=== PATIENT | male | born 1945 | race Caucasian/White ===

== ENCOUNTER 2016-12-06 11:48 | Day surgery (SDC) | payer MEDICARE, SELFPAY ==
[~2016-12-06 11:48] MED LIST: CEFAZOLIN 2 Gram 50 ML IVPB ONE
[2016-12-06] MEDS ORDERED: PROPOFOL 10 MG/ML VIAL IV ONE (14:33)
[2016-12-06] MEDS ORDERED: *PACU ONLY* KETAMINE HCL 10 MG/ML (20ML) VIAL IV ONE (14:33)
[2016-12-06] MEDS ORDERED: DIPHENHYDRAMINE HCL IV 50 MG/ML VIAL IVP ONE (15:28)
[2016-12-06] MEDS ORDERED: PHENAZOPYRIDINE HCL 95 MG TABLET PO ONE (15:28)
--- NOTE | 2016-12-07 12:42 | Operative Note ---
DATE OF PROCEDURE: 12/06/2016. PREOPERATIVE DIAGNOSIS: URGE INCONTINENCE AND RECURRENT URINARY TRACT INFECTIONS. POSTOPERATIVE DIAGNOSIS: URGE INCONTINENCE AND RECURRENT URINARY TRACT INFECTIONS. PROCEDURE: Cystoscopy, bilateral retrograde pyelograms. ANESTHESIA: Sedation. INDICATIONS: This is a 71-year-old male with a history of strokes as well as urinary retention in the past. He underwent transurethral resection of the prostate roughly 6 months ago at an outside institution. He has been having recurring episodes of urge incontinence and has had two urinary tract infections in the past month; the last one was proteus. A CT scan with stone protocol was obtained which was unremarkable and did not show any sign of urinary tract calculus or obstruction. Today he presents for cystoscopic evaluation. PROCEDURE: Preoperative informed consent was obtained. Antibiotics were given. Sedation was administered. The patient was brought to the operating room and placed in the lithotomy position with the genitalia prepped and draped sterilely. Cystoscopy was performed. The anterior urethra appears unremarkable. The prostate shows signs of prior transurethral resection as noted above. There is a left lateral lobe which is protruding somewhat intravesically causing some mild visual obstruction. Otherwise there is no evidence of bladder outlet obstruction. The bladder was entered and inspected systematically. Both ureteral orifices had normal appearance and positioning. Each was effluxing clear urine. There was a moderate amount of bladder trabeculation noted. There was no other evidence of bladder abnormality seen. No evidence of tumor, stone, or other abnormality. Bilateral retrograde pyelograms were performed. Recognizing the fine-detail limitations of mobile seen on fluoroscopy, the upper tracts appeared unremarkable with no evidence of filling defect, stricture, or dilatation. Drainage was prompt bilaterally. The bladder was then emptied, and the scope was withdrawn. Rectal examination revealed a mild to moderately enlarged prostate which was smooth without any nodularity. The procedure was then terminated. The patient was transferred to Recovery in stable condition. PLAN: My overall impression regarding urge incontinence is that this is very likely related to bladder dysfunction possibly related to his history of strokes since there is no evidence of bladder outlet obstruction today. We discussed management options with his family, and decided to start him on VESIcare 10 mg tablets. I wrote a prescription for that. He will follow up in the office in one month to review his response. With regards to the recurrent urinary tract infections, again I have not identified a source. This may be related to diabetes or other systemic illness. If he continues to show recurring infections or positive urine cultures, we will discuss putting him on a prophylactic antibiotic program. Chandler Jain M.D. Date Time Job Number: [id number] cc: Lee Chauhan
== END 2016-12-06 15:25 | disposition home or self-care (01) ==
LOC: SUR 11:48
PROVIDERS: ATTEND Urology
DX: N39.41 Urge incontinence (principal); N39.0 Urinary tract infection, site not specified; E11.9 Type 2 diabetes mellitus without complications; Z79.84 Long term (current) use of oral hypoglycemic drugs; I10 Essential (primary) hypertension; E78.00 Pure hypercholesterolemia, unspecified
CPT/HCPCS: 52005; 00910; J0690; J1200

== ENCOUNTER 2017-01-08 01:13 | Inpatient (IN) | payer MEDICARE, SELFPAY ==
[2017-01-08] MEDS ORDERED: 0.9 % SODIUM CHLORIDE 1,000 ML BAG IV ONE (01:38)
--- NOTE | 2017-01-08 01:44 | Emergency Department Record ---
History of Present Illness - General Chief complaint: Nausea, Vomiting, Diarrhea Stated complaint: VOMITING Time Seen by Provider: 01/08/17 01:38 Source: Patient, Family, EMS Mode of Arrival: EMS - History of Present Illness Initial comments: 71 yo male presents with nausea, vomiting and diarrhea that started around 7pm. Report is it occurred numerous times. He is a resident of an adult foster care. No other sick residents. He has a history of prior strokes. He has been weak generally throughout the day. No fevers. No cough. No blood in the diarrhea. He has been in the home since October. PCP is Dr Billy. complaint: Diarrhea, Nausea, Vomiting Onset/Timin -: Days(s) Description of Vomiting: Watery Description of Diarrhea: Water Radiation: None Quality: Other (resolved) Consistency: Intermittent Improves with: None Worsens with: Eating Associated Symptoms: Nausea/vomiting, Weakness - Related Data Home Medications Medication Instructions Recorded Confirmed Last Taken Amlodipine Besylate [Norvasc] 10 mg PO DAILY 01/08/17 01/08/17 Unknown Chlorthalidone 25 mg PO DAILY 01/08/17 01/08/17 Unknown Citalopram Hydrobromide 20 mg PO DAILY 01/08/17 01/08/17 Unknown [Citalopram HBr] Docusate Sodium [Colace] 100 mg PO BID 01/08/17 01/08/17 Unknown Glipizide [Glipizide ER] 5 mg PO DAILY 01/08/17 01/08/17 Unknown Lisinopril 10 mg PO DAILY 01/08/17 01/08/17 Unknown Metoprolol Succinate 50 mg PO DAILY 01/08/17 01/08/17 Unknown Omeprazole 20 mg PO BID 01/08/17 01/08/17 Unknown Solifenacin Succinate [Vesicare] 10 mg PO DAILY 01/08/17 01/08/17 Unknown Tamsulosin HCl [Flomax] 0.8 mg PO DAILY 01/08/17 01/08/17 Unknown Allergies Allergy/AdvReac Type Severity Reaction Status Date / Time Iodinated Contrast Media - Allergy "sets him Verified 05/02/16 23:20 Oral and on fire or [Iodinated Contrast Media - something." IV Dye] sertraline HCl [From Zoloft] Allergy PT UNSURE Verified 12/05/16 12:00 OF REACTION Travel Screening - Travel/Exposure Within Last 30 Days Have you traveled within the last 30 days?: No Review of Systems Constitutional: Reports: Malaise, Weakness. Denies: Chills, Fever Eyes: Denies: Eye discharge, Eye pain, Photophobia ENT: Denies: Congestion, Throat pain Respiratory: Denies: Cough, Dyspnea, Hemoptysis, Stridor, Wheezes Cardiovascular: Denies: Chest pain, Palpitations, Syncope Endocrine: Reports: Fatigue Gastrointestinal: Reports: Diarrhea, Nausea, Vomiting. Denies: Constipation, Hematemesis, Hematochezia Genitourinary: Denies: Dysuria, Frequency Musculoskeletal: Denies: Arthralgia, Back pain, Myalgia, Neck pain Skin: Denies: Bruising, Change in color Neurological: Denies: Headache Psychiatric: Denies: Anxiety Hematological/Lymphatic: Denies: Blood Clots, Easy bleeding, Easy bruising, Swollen glands Past Medical History - SOCIAL HISTORY Smoking Status: Former smoker Alcohol Use: None Drug Use: None - RESPIRATORY Hx Respiratory Disorders: Yes - CARDIOVASCULAR Hx Cardio Disorders: Yes Hx Hypertension: Yes (on meds good control now) Hx Coronary Stent: Yes - NEURO Hx Neuro Disorders: Yes Hx Brain Tumor: Yes (cysts removed binign) Hx CVA: Yes (8 since ) Hx Dementia: Yes (mild) Hx Dizziness: Yes Hx Headaches: Yes (complicated) Hx of Migraines: Yes (complicated) 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) Hx Speech Problem: Yes (slow to speak at times) Hx TIA: Yes (February 2016) Hx Weakness: Yes - GI Hx GI Disorders: Yes Comment:: colon adenoma - Hx Genitourinary Disorders: Yes Hx Bladder Problem: Yes Hx Prostate Problems: Yes (TURP) Hx UTI: Yes (frequently) - ENDOCRINE Hx Endocrine Disorders: Yes Hx Diabetes: Yes - MUSCULOSKELETAL Hx Musculoskeletal Disorders: Yes Hx Arthritis: Yes - PSYCH Hx Psych Problems: Yes Hx Depression: Yes - HEMATOLOGY/ONCOLOGY Hx Hematology/Oncology Disorders: No Family Medical History Any Significant Family History?: Yes Hx Heart Disease: Brother/Sister *Heart Comment: neice Physical Exam - General General Appearance: Alert, Cooperative, No acute distress, Other (appears alert , answers questions) Limitations: No limitations - Head Head exam: Normal inspection - Eye Eye exam: Normal appearance, PERRL - ENT ENT exam: Normal exam, Mucous membranes moist Ear exam: Normal external inspection Nasal Exam: Normal inspection Mouth exam: Normal external inspection Teeth exam: Normal inspection Throat exam: Normal inspection - Neck Neck exam: Normal inspection, Full ROM. negative: Tenderness - Respiratory Respiratory exam: Normal lung sounds bilaterally. negative: Respiratory distress - Cardiovascular Cardiovascular Exam: Regular rate, Normal rhythm, Normal heart sounds - GI/Abdominal GI/Abdominal exam: Soft, Normal bowel sounds. negative: Diminished bowel sounds , Distended, Rigid, Tenderness - Rectal Rectal exam: Deferred - exam: Deferred - Extremities Extremities exam: Normal inspection, Full ROM, Normal capillary refill. negative: Tenderness - Back Back exam: Reports: Normal inspection, Full ROM. Denies: Muscle spasm, Rash noted, Tenderness - Neurological Neurological exam: Alert - Psychiatric Psychiatric exam: Normal affect, Normal mood - Skin Skin exam: Dry, Intact, Normal color, Warm Course Vital Signs 01/08/17 01:17 Temperature 99.7 F H Pulse Rate 80 Respiratory 18 Rate Blood Pressure 130/77 Pulse Ox 94 L - Reevaluation(s) Reevaluation #1: The CBC was reviewed No acute changes. 01/08/17 02:19 Reevaluation #2: The labs were reviewed His BUN was 40 with a CR of 1.7 likely demonstrating dehydration from the vomiting and diarrhea. Prior BUN/CR were in the normal range Glucose is 212, HCO3 is 20 with AG 16. 01/08/17 02:52 UA is negative 01/08/17 02:54 Reevaluation #3: The head CT scan was reviewed No acute changes from the prior CT scan. The patient will be admitted for dehydration, acute renal insufficiency, weakness at [facility] to his PCP Dr Billy. 01/08/17 03:32 Medical Decision Making - Lab Data Result diagrams: 01/08/17 02:00 01/08/17 02:00 Disposition Disposition: Admit Clinical Impression: Dehydration, Renal insufficiency, Vomiting and diarrhea, Confusion Disposition: Still a Patient at [facility] Decision to Admit: Admit from ER Decision to Admit Date: 01/08/17 Decision to Admit Time: 03:33 Condition: (2) Stable Forms: Patient Portal Access Time of Disposition: 03:33
[2017-01-08 02:16] LABS: BASO % 0.1 % (0-6); EOS % 0.2 % (0-6); HEMATOCRIT 37.4 % (42.0-52.0); HEMOGLOBIN 13.4 gm/dl (14.0-18.0); LYMPH % 2.3 % (16-45); MEAN CELL VOLUME 91.4 fl (81-97); MEAN CORPUSCULAR HGB CONC 35.8 g/dl (32-36); MEAN PLATELET VOLUME 10.5 fl (7.4-10.4); MONO % 5.1 % (0-9); PLATELET COUNT 183 K/uL (130-400); RED BLOOD COUNT 4.09 M/uL (4.40-5.70); RED CELL DISTRIBUTION WIDTH 13.3 % (11.5-14.5); WHITE BLOOD COUNT W/O DIFF 11.7 K/uL (4.2-12.2)
[2017-01-08 02:17] LABS: MEAN CORPUSCULAR HEMOGLOBIN 32.7 pg (27-33)
[2017-01-08 02:25] LABS: URINE APPEARANCE CLEAR; URINE BILIRUBIN NEGATIVE (NEGATIVE); URINE BLOOD MODERATE (NEGATIVE); URINE COLOR YELLOW; URINE GLUCOSE (UA) NEGATIVE (NEGATIVE); URINE KETONE NEGATIVE (NEGATIVE); URINE LEUKOCYTE ESTERASE NEGATIVE (NEGATIVE); URINE NITRITE NEGATIVE (NEGATIVE); URINE PROTEIN TRACE (NEGATIVE); URINE UROBILINOGEN 0.2 E.U./dL (0.20 - 1.00)
[2017-01-08 02:26] LABS: ALBUMIN 4.2 gm/dL (3.5-5.0); ANION GAP 16.1 (7-16); BILIRUBIN,TOTAL 0.62 mg/dL (0.2-1.3); CARBON DIOXIDE 20.9 mmol/L (22-30); CREATININE 1.7 mg/dL (0.66-1.25); TOTAL PROTEIN 7.2 gm/dL (6.3-8.2)
[2017-01-08 02:32] LABS: URINE BACTERIA NONE SEEN; URINE EPITHELIAL CELLS NONE SEEN (FEW); URINE WBC NONE SEEN (0-2/hpf)
[2017-01-08] MEDS ORDERED: ACETAMINOPHEN 500 MG TABLET PO PRN (07:30)
[2017-01-08] MEDS ORDERED: ONDANSETRON HCL IV 4 MG/2 ML VIAL IVP PRN (07:30)
--- NOTE | 2017-01-08 07:42 | History & Physical ---
History of Present Illness - Date of Service Date of Service for History & Physical: 01/08/17 - History of Present Illness Admitting Diagnosis: Renal Insuffiency, Dehydration, weakness, confusion History of Present Illness: Micky Harris is a 71 y/o male with hx several CVA, DM admitted with dehydration after sudden onset nausea, vomiting and diarrhea, acute mental status changes from baseline. Currently lives in an AFC and is able to communicate, baseline A&O x3, did admit to + sick contacts in the home with similar symptoms. PCP- Dr Billy PMX: CVA x 8, HTN, DM, colon adenoma PSX: brain cyst removal x 3 Travel Screening - Travel/Exposure Within Last 30 Days Have you traveled within the last 30 days?: No Review of Systems Constitutional: Reports: Malaise, Weakness. Denies: Chills, Fever Eyes: Denies: Eye discharge, Eye pain, Photophobia ENT: Denies: Congestion, Throat pain Respiratory: Denies: Cough, Dyspnea, Hemoptysis, Stridor, Wheezes Cardiovascular: Denies: Chest pain, Palpitations, Syncope Endocrine: Reports: Fatigue Gastrointestinal: Reports: Diarrhea, Nausea, Vomiting. Denies: Constipation, Hematemesis, Hematochezia Genitourinary: Denies: Dysuria, Frequency Musculoskeletal: Denies: Arthralgia, Back pain, Myalgia, Neck pain Skin: Denies: Bruising, Change in color Neurological: Denies: Headache Psychiatric: Denies: Anxiety Hematological/Lymphatic: Denies: Blood Clots, Easy bleeding, Easy bruising, Swollen glands Past Medical History - SOCIAL HISTORY Smoking Status: Former smoker Alcohol Use: None Drug Use: None - RESPIRATORY Hx Respiratory Disorders: Yes - CARDIOVASCULAR Hx Cardio Disorders: Yes Hx Hypertension: Yes (on meds good control now) Hx Coronary Stent: Yes - NEURO Hx Neuro Disorders: Yes Hx Brain Tumor: Yes (cysts removed binign) Hx CVA: Yes (8 since ) Hx Dementia: Yes (mild) Hx Dizziness: Yes Hx Headaches: Yes (complicated) Hx of Migraines: Yes (complicated) 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) Hx Speech Problem: Yes (slow to speak at times) Hx TIA: Yes (February 2016) Hx Weakness: Yes - GI Hx GI Disorders: Yes Comment:: colon adenoma - Hx Genitourinary Disorders: Yes Hx Bladder Problem: Yes Hx Prostate Problems: Yes (TURP) Hx UTI: Yes (frequently) - ENDOCRINE Hx Endocrine Disorders: Yes Hx Diabetes: Yes - MUSCULOSKELETAL Hx Musculoskeletal Disorders: Yes Hx Arthritis: Yes - PSYCH Hx Psych Problems: Yes Hx Depression: Yes - HEMATOLOGY/ONCOLOGY Hx Hematology/Oncology Disorders: No Family Medical History Any Significant Family History?: Yes Hx Heart Disease: Brother/Sister *Heart Comment: tori H&P Meds/Allergies - Allergies Allergies: Allergies Allergy/AdvReac Type Severity Reaction Status Date / Time Iodinated Contrast Media - Allergy "sets him Verified 05/02/16 23:20 Oral and on fire or [Iodinated Contrast Media - something." IV Dye] sertraline HCl [From Zoloft] Allergy PT UNSURE Verified 12/05/16 12:00 OF REACTION - Home Medications Home Medications Medication Instructions Recorded Confirmed Last Taken Amlodipine Besylate [Norvasc] 10 mg PO DAILY 01/08/17 01/08/17 Unknown Chlorthalidone 25 mg PO DAILY 01/08/17 01/08/17 Unknown Citalopram Hydrobromide 20 mg PO DAILY 01/08/17 01/08/17 Unknown [Citalopram HBr] Docusate Sodium [Colace] 100 mg PO BID 01/08/17 01/08/17 Unknown Glipizide [Glipizide] 5 mg PO DAILY 01/08/17 01/08/17 Unknown Lisinopril 10 mg PO DAILY 01/08/17 01/08/17 Unknown Metoprolol Succinate 50 mg PO DAILY 01/08/17 01/08/17 Unknown Omeprazole 20 mg PO BID 01/08/17 01/08/17 Unknown Solifenacin Succinate [Vesicare] 10 mg PO QHS 01/08/17 01/08/17 Unknown Tamsulosin HCl [Flomax] 0.4 mg PO BID 01/08/17 01/08/17 Unknown - Active Medications Active Medications: Current Medications Acetaminophen (Tylenol 500mg Tab) 500 mg PO Q6H PRN PRN Reason: PAIN/TEMP Glipizide (Glucotrol Xl) 5 mg PO DAILY [facility] Sodium Chloride () 1,000 mls @ 100 mls/hr IV .Q10H PRN PRN Reason: LARGE VOLUME IV Metoprolol Succinate (Toprol Xl) 50 mg PO DAILY [facility] Non-Formulary Medication (Amlodipine Besylate [Norvasc]) 10 mg PO DAILY [facility] Non-Formulary Medication (Atorvastatin Calcium [Lipitor]) 40 mg PO QD [facility] Non-Formulary Medication (Omeprazole [Omeprazole]) 20 mg PO BID [facility] Non-Formulary Medication (Solifenacin Succinate [Vesicare]) 10 mg PO DAILY [facility] Non-Formulary Medication (Topiramate [Topamax]) 50 mg PO BID [facility] Ondansetron HCl (Zofran) 4 mg IVP Q4H PRN PRN Reason: NAUSEA Tamsulosin HCl (Flomax) 0.8 mg PO DAILY [facility] Physical Exam - Vital Signs Vital Signs: Vital Signs - Last 24 Hrs Temp Pulse Resp BP Pulse Ox 01/08/17 07:25 98.1 F 68 18 133/56 94 L - General General Appearance: Alert, Cooperative, No acute distress, Other (appears alert , answers questions) Limitations: No limitations - Head Head exam: Normal inspection - Eye Eye exam: Normal appearance, PERRL - ENT ENT exam: Normal exam, Mucous membranes moist Ear exam: Normal external inspection Nasal Exam: Normal inspection Mouth exam: Normal external inspection Teeth exam: Normal inspection Throat exam: Normal inspection - Neck Neck exam: Normal inspection, Full ROM. negative: Tenderness - Respiratory Respiratory exam: Normal lung sounds bilaterally. negative: Respiratory distress - Cardiovascular Cardiovascular Exam: Regular rate, Normal rhythm, Normal heart sounds - GI/Abdominal GI/Abdominal exam: Soft, Normal bowel sounds. negative: Diminished bowel sounds , Distended, Rigid, Tenderness - Rectal Rectal exam: Deferred - exam: Deferred - Extremities Extremities exam: Normal inspection, Full ROM, Normal capillary refill. negative: Tenderness - Back Back exam: Reports: Normal inspection, Full ROM. Denies: Muscle spasm, Rash noted, Tenderness - Neurological Neurological exam: Alert - Psychiatric Psychiatric exam: Normal affect, Normal mood - Skin Skin exam: Dry, Intact, Normal color, Warm Results - Labs Result Diagrams: 01/08/17 02:00 01/08/17 02:00 - Imaging and Cardiology CT scan - head Status: Report reviewed (1- previous craniotomies, 2- no evidence of acute intracranial abnormality) VTE H&P Assessment - Risk for VTE Risk for VTE: Yes Risk Level: Low Risk Assessment Date: 01/08/17 Risk Assessment Time: 07:40 VTE Orders Placed or Will Be Placed: Yes Plan - Inpatient Certification Inpatient Certification: Admit to inpatient care: Based on my medical assessment, after consideration of patient's risk factors (age, co-morbidities and patient presenting symptoms and acuity), I expect that this patient will remain in the hospital greater than or equal to two midnights and that the services needed warrant inpatient care because: Patient Risk Factors: [mental status changes, advance age, multiple comorbidities, unable to perform ADLs] Estimated length of stay: [48-72 hours] The patient may reasonably be expected to be discharged or transferred to a hospital within 96 hours after admission to [facility]. Services needed: [IV fluids, assist with ADL] Post hospital care (if known): [] I certify that my determination is in accordance with my understanding of Medicare requirements for reasonable and necessary inpatient services. 01/08/17 07:42 - Detailed Diagnosis and Plan (1) Dehydration Current Visit: Yes Status: Acute Base Code: E86.0 - DEHYDRATION Comment: 01/08- Likely etiology gastroenteritis with vomiting and diarrhea, BUN/ Cr 40/1.7 in the absence of previous renal disease with slight elevation in WBC prior to IVF in ER which returned WBC to normal limit. Continue IVF @ 100ml/hr, CMP in am (2) Renal insufficiency Current Visit: Yes Status: Acute Base Code: N28.9 - DISORDER OF KIDNEY AND URETER, UNSPECIFIED Comment: 01/08- Likely etiology prerenal azotemia with BUN/CR ratio>20, no previous hx renal disease with acute GI loss from vomiting and diarrhea. CMP in am, continue IVF @ 100ml/hr for replacement (3) Mental status change Current Visit: Yes Status: Acute Qualifiers: Altered mental status type: unspecified Qualified Code(s): R41.82 - Altered mental status, unspecified Base Code: R41.82 - ALTERED MENTAL STATUS , UNSPECIFIED Comment: 01/08- acute change from baseline with hx recurrent CVA likely due to acute dehydration, acute infections process ruled out (U/A neg, WBC elevated upon arrival to ER likely as caused by dehydration). (4) Diabetes type 2, controlled Current Visit: Yes Status: Chronic Qualifiers: Diabetes mellitus complication status: with unspecified complications Diabetes mellitus half-way insulin use: without half-way use Qualified Code(s): E11.8 - Type 2 diabetes mellitus with unspecified complications Base Code: E11.9 - TYPE 2 DIABETES MELLITUS WITHOUT COMPLICATIONS Comment: 01/08- Chronic, continue Glucotrol XL QD (5) HTN (hypertension) Current Visit: Yes Status: Chronic Qualifiers: Hypertension type: essential hypertension Qualified Code(s): I10 - Essential (primary) hypertension Base Code: I10 - ESSENTIAL (PRIMARY) HYPERTENSION Comment: 01/08- chronic history, controlled, will continue Amlodipine 10mg QD, will hold Chlorthaladone until dehyration is resolved, continue to monitor blood pressures per nursing . (6) DVT prophylaxis Current Visit: Yes Status: Acute Base Code: [id number] - Comment: 01/08- Eror- will DC Lovenox and use SCD 2nd hx hemorrhagic CVA
[2017-01-08] MEDS: 0.9 % SODIUM CHLORIDE 1000ML 1,000 ML IV PRN ×2 (07:53→17:32)
[2017-01-08] MEDS ORDERED: SOLIFENACIN SUCCINATE 10 MG PO SCH (10:00)
[2017-01-08] MEDS ORDERED: ENOXAPARIN 40 MG/0.4 ML SYR SQ SCH (10:00)
[2017-01-08] MEDS: DOCUSATE SODIUM 100 MG CAPSULE PO SCH ×2 (10:35→21:46)
[2017-01-08] MEDS: CITALOPRAM 20 MG TABLET PO SCH (10:35)
[2017-01-08] MEDS: TOPIRAMATE 25MG TABLET PO SCH ×2 (10:36→21:46)
[2017-01-08] MEDS: GLIPIZIDE 5 MG TABLET PO SCH (10:37)
[2017-01-08] MEDS: TAMSULOSIN HCL 0.4 MG CAP.ER.24H PO SCH ×2 (10:37→21:46)
[2017-01-08] MEDS: AMLODIPINE BESYLATE 5MG TAB PO SCH (10:38)
[2017-01-08] MEDS: METOPROLOL SUCC 50 MG TABLET PO SCH (10:38)
[2017-01-08] MEDS: PANTOPRAZOLE SODIUM 40 MG TABLET PO SCH ×2 (10:38→21:46)
[2017-01-08] MEDS: LISINOPRIL 10 MG TABLET PO SCH (10:38)
[2017-01-08] MEDS ORDERED: ATORVASTATIN 20 MG TABLET PO SCH (22:00)
[2017-01-09] MEDS: 0.9 % SODIUM CHLORIDE 1000ML 1,000 ML IV PRN (03:31)
[2017-01-09] MEDS: PANTOPRAZOLE SODIUM 40 MG TABLET PO SCH ×2 (05:57→06:49)
[2017-01-09 06:32] LABS: ALB/GLOB RATIO 1.2 (1.1-1.8); ALBUMIN 3.3 gm/dL (3.5-5.0); ALKALINE PHOSPHATASE 68 U/L (38-126); ALT/SGPT 29 U/L (21-72); AST/SGOT 19 U/L (17-59); BILIRUBIN,TOTAL 0.56 mg/dL (0.2-1.3); BLOOD UREA NITROGEN 22 mg/dL (9-20); CREATININE 1.2 mg/dL (0.66-1.25); EST GLOMERULAR FILTRATION RATE > 60 ml/min; GLUCOSE,RANDOM 109 mg/dL (70-110)
[2017-01-09] MEDS: GLIPIZIDE 5 MG TABLET PO SCH (08:29)
--- NOTE | 2017-01-09 09:52 | Rehab Evaluation ---
Patient Information - Patient Information Diagnosis: renal insuffiency, confusion, dehydration, weakness Ordered Treatment: PT Evaluate and Treat Status: Initial Evaluation Surgery: No History: Detail (Patient was admitted to inpatient with dx of renal insufficiency, confusion, dehydration, and weakness. Past medical hx of CVAsx8, HTN, DM (controlled), and colon adenoma. Pt also mentioned hx of R TKA and R shoulder injury.) Past Medical/Surgical Hx: PAST MEDICAL/SURGICAL HISTORY Past Surgical History cardiac stents x 2 2006 2007 knee replacement brain cyst removed x's 3 c scope PMH - Respiratory Hx Respiratory Disorders Yes Hx of SOB Yes: with exertion PMH - Cardiovascular Hx Cardiovascular Disorders Yes Hx Hypertension Yes: on meds good control now Hx Coronary Stent Yes Hx Transient Ischemic Attacks Yes: February 2016 (TIA) Residual Deficits from CVA Yes: tremors rt hand Hx of Migraines Yes: complicated PMH - Neuro Hx Neurological Disorders Yes Hx Brain Tumor Yes: cysts removed binign Hx Cerebrovascular Accident Yes: 8 since Hx Dementia Yes: mild Hx Dizziness Yes Hx Headaches Yes: complicated 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 activity for 20 years Hx Speech Problem Yes: slow to speak at times Hx Transient Ischemic Attacks Yes: February 2016 (TIA) Hx Weakness Yes PMH - GI Hx Gastrointestinal Disorders Yes Hx Gastroesophageal Reflux Yes Hx Nausea/Vomiting Yes Comment: colon adenoma PMH - Hx Genitourinary Disorders Yes Hx Bladder Problem Yes Hx Prostate Problems Yes: TURP Hx Urinary Tract Infection Yes: frequently PMH - Endocrine Hx Endocrine Disorders Yes Hx Diabetes Yes PMH - Musculoskeletal Hx Musculoskeletal Disorders Yes Hx Arthritis Yes PMH - Psych Hx Psychiatric Problems Yes Hx Depression Yes PMH - Hematology/Oncology Hx Hematology/Oncology No Disorders Premorbid Status: Detail (Patient lives at an [facility] and is independent with ADLs, per patient report. Pt ambulates with a single point cane and has a walker available as needed. Reported zero falls in the past year; "as far as he can remember.") Social History: Detail (Patient lives in an [facility] where meals are provided. Mentioned he has a daughter who works in [employer] and son who works in [employer]. Facility has a shower/tub combination, grab bars in shower, and raised toilet seat, per patient report. Pt also stated facility can provide assistance or therapy as needed.) Precautions: Alvin, Fall - Time With Patient Total Time Spent With Patient (Min): 35 Treatment Procedures: Detail Subjective Information - Subjective Information Per Patient Objective Data - Pain Pain Present: No - Mental Status Patient Orientation: Oriented x3 (Patient was able to recall his name, , month/day, and city ([place]). Pt had difficulty with finding words ( likely due to hx of CVAs), but was able to recall information when given time or prompting.) - Visual Perception Appears within normal limits for therapeutic activities - ROM Within normal limits (Pt is able to elevate arms above head suggesting ROM is WFL. LE ROM considered WFL for transfers and gait. No apparent ROM impairment.) - Strength/Tone Within normal limits (UE: head of talent management strength B 4+/5 and B elbow flexion strength 4+/ 5. LE: B hip flexion, knee extension/flexion, ankle DF/PF 4+/5. Delayed recruitment of ankle dorsiflexors, but strength WNL. Tremor noted with MMT of L>R muscle groups (UE and LE).) - Coordination Appears within normal limits for therapeutic activities - Bed Mobility Independent (Per nursing report) - Transfers Independent (Demonstrated independence with sit <> stand.) - Balance Balance Sitting: Good (Does not require use of UE for support when sitting edge of chair.) Balance Standing: Good (After gait training, patient standing balance assessed with single point cane with SBAx2 to evaluate appropriateness of device. Able to balance with eyes open using for 30 seconds without LOB. Self-selected wide MARGE noted. Able to stand with wide MARGE with eyes closed for 15 seconds without LOB as well as stand with narrow MARGE with eyes open for 15 seconds. Also demonstrated appropriate balance strategies with perturbations eyes open. Increased posterior sway with perturbations in A-P direction with eyes closed, but utilized appropriate hip strategy to correct balance.) - Gait Detail (Pt ambulated with FWW with CGAx1 70' without rest. Gait analysis revealed reciprocal gait pattern, shortened (equal) stride length and appropriate upright trunk position. Pt ambulated 10' with single point cane with CGAx1 and also demonstrated appropriate technique.) - Special Tests No Therapy Assessment - Therapy Assessment Detail (Patient is considered a low complexity evaluation based on body structure impairments and comorbidities including general weakness secondary to renal insufficiency and dehydration and confusion. Other personal factors are not relevant to PT POC. Due to the following impairments, the patient has slightly reduced tolerance to activity. Pt is able to ambulate with cane for short distances, but may benefit from PT evaluation upon return to [facility] to ensure safe transition s/p hospitalization and to promote achievement of maximum functional potential.) Problem List - Problem List Physical Therapy Problem List: Detail (1) Reduced tolerance to activity, namely ambulation community distances using single point cane) Goals - Goals Physical Therapy Goals: 1) Patient will ambulate 100' with single point cane with SBAx1 without LOB to ensure safe ambulation with prolonged activity and to achieve previous functional status. 2) Complete formal balance outcome measure to reassess fall risk. Prognosis - Prognosis Good Plan - Plan Physical Therapy Plan: Plan is to discharge patient to [facility] per attending physician. PT recommends an initial PT evaluation upon return to [facility] to ensure safe transition and to achieve maximum functional potential. May benefit from outcome measure related to balance to formally assess fall risk.
[2017-01-09] MEDS: DOCUSATE SODIUM 100 MG CAPSULE PO SCH (09:53)
[2017-01-09] MEDS: TAMSULOSIN HCL 0.4 MG CAP.ER.24H PO SCH (09:54)
[2017-01-09] MEDS: TOPIRAMATE 25MG TABLET PO SCH (09:54)
[2017-01-09] MEDS: CITALOPRAM 20 MG TABLET PO SCH (09:54)
[2017-01-09] MEDS: AMLODIPINE BESYLATE 5MG TAB PO SCH (09:55)
[2017-01-09] MEDS: LISINOPRIL 10 MG TABLET PO SCH (09:55)
[2017-01-09] MEDS: METOPROLOL SUCC 50 MG TABLET PO SCH (09:56)
--- NOTE | 2017-01-09 14:13 | Discharge Summary ---
Providers Discharge Summary Date: 01/09/17 Date of admission: 01/08/17 07:22 Expected Date of Discharge: 01/09/17 Attending physician: CYNDI DOMINIQUE Physical Exam - Vital Signs Vital Signs: Vital Signs - Last 24 Hrs Temp Pulse Resp BP BP BP Pulse Ox 01/09/17 09:52 98.7 F 50 L 16 114/56 96 01/09/17 09:00 98.7 F 50 L 16 120/62 01/09/17 05:52 98.7 F 54 L 18 120/62 98 01/08/17 21:00 98.9 F 60 18 108/63 97 01/08/17 15:30 97.7 F 56 L 16 98/52 95 - General General Appearance: Alert, Cooperative, No acute distress, Other (appears alert , answers questions) Limitations: No limitations - Head Head exam: Normal inspection - Eye Eye exam: Normal appearance, PERRL - ENT ENT exam: Normal exam, Mucous membranes moist Ear exam: Normal external inspection Nasal Exam: Normal inspection Mouth exam: Normal external inspection Teeth exam: Normal inspection Throat exam: Normal inspection - Neck Neck exam: Normal inspection, Full ROM. negative: Tenderness - Respiratory Respiratory exam: Normal lung sounds bilaterally. negative: Respiratory distress - Cardiovascular Cardiovascular Exam: Regular rate, Normal rhythm, Normal heart sounds - GI/Abdominal GI/Abdominal exam: Soft, Normal bowel sounds. negative: Diminished bowel sounds , Distended, Rigid, Tenderness - Rectal Rectal exam: Deferred - exam: Deferred - Extremities Extremities exam: Normal inspection, Full ROM, Normal capillary refill. negative: Tenderness - Back Back exam: Reports: Normal inspection, Full ROM. Denies: Muscle spasm, Rash noted, Tenderness - Neurological Neurological exam: Alert - Psychiatric Psychiatric exam: Normal affect, Normal mood - Skin Skin exam: Dry, Intact, Normal color, Warm Hospitalization - Hospitalization Admission Diagnosis: Renal Insuffiency, Dehydration, weakness, confusion - Problem List/Discharge Diagnosis (1) Dehydration Current Visit: Yes Status: Resolved Base Code: E86.0 - DEHYDRATION Comment: 01/09- Likely etiology gastroenteritis with vomiting and diarrhea, continued IV fluids until able to control nausea and then tolerate PO. GFR >60 and creatinine down to 1.2. No longer prerenal in labs. (2) Mental status change Current Visit: Yes Status: Resolved Discharge Diagnosis: Altered mental status type: unspecified Qualified Code(s): R41.82 - Altered mental status, unspecified Base Code: R41.82 - ALTERED MENTAL STATUS , UNSPECIFIED Comment: 01/09- with hydration status improved and nausea, vomitting, and diarrhea resolved. acute change from baseline with hx recurrent CVA likely due to acute dehydration, acute infections process ruled out (U/A neg) (3) Renal insufficiency Current Visit: Yes Status: Acute Base Code: N28.9 - DISORDER OF KIDNEY AND URETER, UNSPECIFIED Comment: 01/09- resolved with IV fluids. Likely etiology prerenal (dehydration) with BUN/CR ratio>20, no previous hx renal disease with acute GI loss from vomiting and diarrhea. (4) Vomiting and diarrhea Current Visit: Yes Status: Resolved Base Code: R11.10 - VOMITING, UNSPECIFIED; R19.7 - DIARRHEA, UNSPECIFIED (5) Diabetes type 2, controlled Current Visit: Yes Status: Chronic Discharge Diagnosis: Diabetes mellitus complication status: with unspecified complications Diabetes mellitus laborer marine terminal insulin use: without penitentiary use Qualified Code(s): E11.8 - Type 2 diabetes mellitus with unspecified complications Base Code: E11.9 - TYPE 2 DIABETES MELLITUS WITHOUT COMPLICATIONS Comment: 01/09- Chronic, continue Glucotrol XL QD (6) HTN (hypertension) Current Visit: Yes Status: Chronic Discharge Diagnosis: Hypertension type: essential hypertension Qualified Code(s): I10 - Essential (primary) hypertension Base Code: I10 - ESSENTIAL (PRIMARY) HYPERTENSION Comment: 01/09- Chronic history, controlled, will continue Amlodipine 10mg QD. Will hold Chlorthaladone until dehyration is resolved, continue to monitor blood pressures per nursing and have him follow up with PCP to determine need to restart chlorthaladone. - Hospitalization Course Abnormal Labs: Abnormal Lab Results 01/09/17 Range/Units 06:15 Carbon Dioxide 21.0 L (22-30) mmol/L BUN 22 H (9-20) mg/dL Calcium 8.2 L (8.5-10.1) mg/dL Total Protein 6.0 L (6.3-8.2) gm/dL Albumin 3.3 L (3.5-5.0) gm/dL Condition at Discharge: (1) Good Discharge Medications - Discharge Medications Home Medications: Ambulatory Orders Amlodipine Besylate [Norvasc] 10 mg PO DAILY 01/08/17 [Last Taken Unknown] Citalopram Hydrobromide [Citalopram HBr] 20 mg PO DAILY 01/08/17 [Last Taken Unknown] Docusate Sodium [Colace] 100 mg PO BID 01/08/17 [Last Taken Unknown] Glipizide 5 mg PO DAILY 01/08/17 [Last Taken Unknown] Lisinopril 10 mg PO DAILY 01/08/17 [Last Taken Unknown] Metoprolol Succinate 50 mg PO DAILY 01/08/17 [Last Taken Unknown] Omeprazole 20 mg PO BID 01/08/17 [Last Taken Unknown] Solifenacin Succinate [Vesicare] 10 mg PO QHS 01/08/17 [Last Taken Unknown] Tamsulosin HCl [Flomax] 0.4 mg PO BID 01/08/17 [Last Taken Unknown] Acetaminophen [Tylenol 500Mg Tab] 500 mg PO Q6H PRN #0 tablet 01/09/17 [Last Taken Unknown] Citalopram Hydrobromide [Celexa] 20 mg PO DAILY tablet 01/09/17 [Last Taken Unknown] Docusate Sodium [Colace] 100 mg PO BID cap 01/09/17 [Last Taken Unknown] Glipizide [Glucotrol] 5 mg PO DAILYWM tablet 01/09/17 [Last Taken Unknown] Discharge Plan - Discharge Instructions Activity at Discharge: Increase Activity as Tolerated Diet at Discharge: Regular Diet
--- NOTE | 2017-01-11 14:34 | CT SCAN REPORT ---
EXAM: CT SCAN HEAD WO CONTRAST HISTORY: PATIENT CONFUSED, HISTORY OF MULTIPLE STROKES. TECHNIQUE: Axial CT scan of the head performed without IV contrast. Preliminary report provided by [facility]. COMPARISON: Head CT 10/17/16. FINDINGS: Patient again is seen to be postop fairly extensive craniotomy on the left involving the frontoparietal and temporal regions as before. Large intraparenchymal cystic area again noted in the left frontal lobe measuring about 5 cm x 4.4 cm in size, essentially unchanged from before as I measured on the prior study as well. Small focal area of hyperdensity just inferior to this cyst is also again seen and appears unchanged. Dilatation of the frontal horn of the left lateral ventricle as before. The large intraparenchymal cystic focus again causes mass effect on the anterior falx as before. No definite acute intracranial hemorrhage is seen. Generalized atrophy as before. No definite acute infarct evident. Mild membrane thickening in the right frontal sinus and a cyst or polyp in the floor of the right maxillary sinus. IMPRESSION: 1. LARGE CYSTIC MASS-LIKE AREA, LEFT FRONTAL LOBE, BEFORE WITH SOME LOCALIZED MASS EFFECT AND DISPLACEMENT OF THE ANTERIOR FALX TO THE RIGHT BEFORE. THIS ALSO EFFACES THE OVERLYING FRONTAL LOBE SULCI BEFORE. 2. SMALL HYPERDENSE FOCUS MORE ANTEROINFERIORLY IN THE LEFT FRONTAL LOBE BEFORE. 3. GENERALIZED ATROPHY BEFORE. 4. DILATATION OF THE FRONTAL HORN OF THE LEFT LATERAL VENTRICLE BEFORE. 5. CYST OR POLYP IN THE FLOOR OF THE RIGHT MAXILLARY ANTRUM AND SOME MILD MEMBRANE THICKENING IN THE RIGHT FRONTAL SINUS. 6. LARGE POSTOP CRANIOTOMY ON THE LEFT BEFORE. JOB NUMBER: [id number] [facility]
== END 2017-01-09 18:20 | disposition home or self-care (01) | DRG 641 ==
LOC: ER 01:13 → MEDSURG 07:22
PROVIDERS: ADMIT Family Medicine; ATTEND Family Medicine
DX: E86.0 Dehydration (principal); R41.82 Altered mental status, unspecified; N28.9 Disorder of kidney and ureter, unspecified; R11.10 Vomiting, unspecified; I10 Essential (primary) hypertension; E11.9 Type 2 diabetes mellitus without complications; Z79.84 Long term (current) use of oral hypoglycemic drugs
CPT/HCPCS: 70450; 80048; 80053; 80076; 81001; 83690; 85027; 89055; 96360; 96361; 97161; 99223; 99239; 99285; J7030

== ENCOUNTER 2018-06-26 06:32 | Day surgery (SDC) | payer MEDICARE, SELFPAY ==
[2018-06-26] MEDS ORDERED: ALFENTANIL HCL 500 MCG/1ML, 2ML AMP IV ONE (06:33)
[2018-06-26] MEDS ORDERED: CARBACHOL 1.5 ML VIAL OPTH ONE (06:33)
[2018-06-26] MEDS ORDERED: NEO/POLY B/DEXAMETH 5ML SUSP OPTH ONE (06:33)
[2018-06-26] MEDS ORDERED: PROPOFOL 10 MG/ML VIAL IV ONE (06:33)
[2018-06-26] MEDS ORDERED: LIDOCAINE 2% MDV (20MG/ML) 20ML VIAL IV ONE ×2 (06:33)
[2018-06-26] MEDS ORDERED: EPINEPHRINE 1 MG/ML AMPUL SQ ONE (06:33)
[2018-06-26] MEDS ORDERED: TETRACAINE HCL 0.5% 15 ML OPTH BTL OPTH ONE (06:33)
[2018-06-26] MEDS ORDERED: CIPROFLOXACIN HCL 0.0015 GM, PHENYLEPHRINE HCL 0.05 GM, KETOROLAC TROMETHAMINE 0.000625 GM MC ONE ×5 (10:45)
--- NOTE | 2018-06-26 22:14 | Operative Note ---
DATE OF PROCEDURE: 06/26/18. PREOPERATIVE DIAGNOSIS: Nuclear sclerotic cataract, right eye. POSTOPERATIVE DIAGNOSIS: Nuclear sclerotic cataract, right eye. OPERATION: Phacoemulsification of cataractous lens with implantation of intraocular lens. LENS IMPLANT USED: Hahn Model PCB00 + 24.0 diopters. COMPLICATIONS: None. PROCEDURE IN DETAIL: Following a retrobulbar and facial block, the patient was prepped and draped in the usual fashion for eye surgery. A lid speculum was placed in the right eye after which a 2.4 mm tunnel wound was placed at the temporal limbus and dissected into clear cornea. A paracentesis was placed at 2 o'clock hours to the left and right of the initial incision and the chamber deepened with Viscoelastic. The keratome was then used to enter the anterior chamber after which the continuous circular capsulorrhexis was accomplished without difficulty using a bent needle and a Utrata forceps. Hydrodissection and hydrodelineation of the lens was performed after which the nucleus of the lens was removed using the Phaco handpiece in the [id number] technique. The residual cortical material was irrigated and aspirated from the eye after which the bag and chamber were re-examined. The bag was re-inflated with Viscoelastic and the intraocular lens injected into the capsular bag where it centered well. The Viscoelastic was then copiously irrigated and aspirated from the eye after which the temporal tunnel wound and paracentesis were hydrated and the wounds were examined. They were noted to be watertight. The lid speculum was removed from the eye and the eye patched and shielded. The patient was transferred to the recovery room in satisfactory condition and given an appointment to be reexamined in the clinic later today or as directed by Dr. Pendleton. JOB NUMBER: [id number] [facility]
== END 2018-06-26 09:48 | disposition home or self-care (01) ==
LOC: SUR 06:32
PROVIDERS: ATTEND Ophthalmology
DX: H25.11 Age-related nuclear cataract, right eye (principal); I10 Essential (primary) hypertension; E78.00 Pure hypercholesterolemia, unspecified; E11.9 Type 2 diabetes mellitus without complications; I25.10 Atherosclerotic heart disease of native coronary artery without angina pectoris; I63.9 Cerebral infarction, unspecified
CPT/HCPCS: J0171

== ENCOUNTER 2018-07-10 06:10 | Day surgery (SDC) | payer MEDICARE, SELFPAY ==
[2018-07-10] MEDS ORDERED: PROPOFOL 10 MG/ML VIAL IV ONE (06:11)
[2018-07-10] MEDS ORDERED: LIDOCAINE 2% MDV (20MG/ML) 20ML VIAL IV ONE (06:11)
[2018-07-10] MEDS ORDERED: EPINEPHRINE 1 MG/ML AMPUL SQ ONE (06:11)
[2018-07-10] MEDS ORDERED: FENTANYL PF 100MCG/2ML VIAL IV ONE (06:11)
[2018-07-10] MEDS ORDERED: TETRACAINE HCL 0.5% 15 ML OPTH BTL OPTH ONE (06:11)
[2018-07-10] MEDS ORDERED: CIPROFLOXACIN HCL 0.0015 GM, PHENYLEPHRINE HCL 0.05 GM, KETOROLAC TROMETHAMINE 0.000625 GM MC ONE ×5 (13:00)
--- NOTE | 2018-07-12 13:39 | Operative Note ---
DATE OF PROCEDURE: 07/10/18. PREOPERATIVE DIAGNOSIS: Nuclear sclerotic cataract, left eye. POSTOPERATIVE DIAGNOSIS: Nuclear sclerotic cataract, left eye. OPERATION: Phacoemulsification of cataractous lens with implantation of intraocular lens. LENS IMPLANT USED: Hahn Model PCB00 + 24.5 diopters. COMPLICATIONS: None. PROCEDURE IN DETAIL: Following a retrobulbar and facial block, the patient was prepped and draped in the usual fashion for eye surgery. A lid speculum was placed in the left eye after which a 2.4 mm tunnel wound was placed at the temporal limbus and dissected into clear cornea. A paracentesis was placed at 2 o'clock hours to the left and right of the initial incision and the chamber deepened with Viscoelastic. The keratome was then used to enter the anterior chamber after which the continuous circular capsulorrhexis was accomplished without difficulty using a bent needle and a Utrata forceps. Hydrodissection and hydrodelineation of the lens was performed after which the nucleus of the lens was removed using the Phaco handpiece in the [id number] technique. The residual cortical material was irrigated and aspirated from the eye after which the bag and chamber were re-examined. The bag was re-inflated with Viscoelastic and the intraocular lens injected into the capsular bag where it centered well. The Viscoelastic was then copiously irrigated and aspirated from the eye after which the temporal tunnel wound and paracentesis were hydrated and the wounds were examined. They were noted to be watertight. The lid speculum was removed from the eye and the eye patched and shielded. The patient was transferred to the recovery room in satisfactory condition and given an appointment to be reexamined in the clinic later today or as directed by Dr. Pendleton. JOB NUMBER: [id number] [facility]
== END 2018-07-10 09:35 | disposition home or self-care (01) ==
LOC: SUR 06:10
PROVIDERS: ATTEND Ophthalmology
DX: H25.12 Age-related nuclear cataract, left eye (principal); I10 Essential (primary) hypertension; E78.00 Pure hypercholesterolemia, unspecified; Z79.899 Other long term (current) drug therapy; Z51.81 Encounter for therapeutic drug level monitoring; E11.9 Type 2 diabetes mellitus without complications; K21.9 Gastro-esophageal reflux disease without esophagitis; I25.10 Atherosclerotic heart disease of native coronary artery without angina pectoris; Z86.73 Personal history of transient ischemic attack (TIA), and cerebral infarction without residual deficits
CPT/HCPCS: 66984; 00142; 85025; 82306; 80053; 36416; 83036; 82948; 84443; 80061; J3010; J0171

== ENCOUNTER 2019-02-03 19:58 | Inpatient (IN) | payer MEDICARE, SELFPAY ==
--- NOTE | 2019-02-03 20:22 | Emergency Department Record ---
History of Present Illness - General Chief Complaint: Confusion Stated Complaint: CONFUSION,COUGH Time Seen by Provider: 02/03/19 20:06 Source: Patient, Family (Daughter) Mode of Arrival: Wheelchair Limitations: Altered mental status - History of Present Illness Initial Comments: 73 yo male presents to ED for evaluation of increasing weakness and confusion for the past several days. Daughter reports recent cough symptoms, believed he may have a sinus infection similar to other family members. Patient resides at an assisted living facility, called his daughter as he was more confused today. Daughter reports a history of brain cancer s/p tumor removal, also reports numerous "brain bleeds" in the past. Family denies fever symptoms, denies focal weakness. MD Complaint: Altered mental status, Confusion Onset/Timin -: Days(s) Severity: Moderate Consistency: Constant - [place] Coma Scale Eye Response: (4) Open spontaneously Motor Response: (6) Obeys commands Verbal Response: (4) Confused conversation [place] Total: 14 - Related Data Allergies Allergy/AdvReac Type Severity Reaction Status Date / Time Iodinated Contrast- Oral and Allergy Intermediate "sets him Unverified 09/12/18 10:54 IV Dye on fire or [Iodinated Contrast Media - something." IV Dye] sertraline HCl [From Zoloft] Allergy Intermediate PT UNSURE Unverified 09/12/18 10:54 OF REACTION Review of Systems ROS unobtainable: Due to mental status Past Medical History - SOCIAL HISTORY Smoking Status: Former smoker - RESPIRATORY Hx Respiratory Disorders: Yes - CARDIOVASCULAR Hx Cardio Disorders: Yes Hx Cardiac Cath: Yes Hx Hypertension: Yes (on meds good control now) Hx Coronary Stent: Yes - NEURO Hx Neuro Disorders: Yes Hx Brain Tumor: Yes (benign cysts removed) Hx CVA: Yes (8 since ) Hx Dementia: Yes (mild) Hx Headaches: No (no problem with this recently) Hx of Migraines: No (no problem recently) 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) Hx Speech Problem: Yes (slow to speak at times) Hx TIA: Yes (February 2016) Hx Weakness: Yes (generalized) - GI Hx GI Disorders: Yes Hx Reflux: Yes - Hx Genitourinary Disorders: Yes Hx Bladder Problem: Yes (incont-wears adult depends) Hx Prostate Problems: Yes (TURP) Hx UTI: Yes (none recently(past year)) - ENDOCRINE Hx Endocrine Disorders: Yes Hx Diabetes: Yes - MUSCULOSKELETAL Hx Musculoskeletal Disorders: Yes Hx Arthritis: Yes (rt shoulder & rt knee) - PSYCH Hx Psych Problems: Yes Hx Depression: Yes - HEMATOLOGY/ONCOLOGY Hx Hematology/Oncology Disorders: No Family Medical History Hx Diabetes: Children Hx Heart Disease: Children, Brother/Sister Physical Exam - General General Appearance: Cooperative, Moderate distress, Other (Appears fatigued, AOx 2 (believes it is currently 2014)) Limitations: Altered mental status - Head Head exam: Atraumatic, Normocephalic, Normal inspection Head exam detail: negative: Abrasion, Contusion, Bianchi's sign, General tenderness, Hematoma, Laceration - Eye Eye exam: Normal appearance. negative: Conjunctival injection, Periorbital swelling, Periorbital tenderness, Scleral icterus - ENT Ear exam: negative: Auricular hematoma, Auricular trauma Nasal Exam: negative: Active bleeding, Discharge, Dried blood, Foreign body Mouth exam: negative: Drooling, Laceration, Muffled voice, Tongue elevation - Neck Neck exam: Normal inspection. negative: Meningismus, Tenderness - Respiratory Respiratory exam: Normal lung sounds bilaterally. negative: Rales, Respiratory distress, Rhonchi, Stridor - Cardiovascular Cardiovascular Exam: Regular rate, Normal rhythm, Normal heart sounds - GI/Abdominal GI/Abdominal exam: Soft, Tenderness. negative: Rebound, Rigid - Rectal Rectal exam: Deferred - exam: Deferred - Extremities Extremities exam: Normal inspection. negative: Pedal edema, Tenderness - Back Back exam: Denies: CVA tenderness (R), CVA tenderness (L) - Neurological Neurological exam: Alert, Normal gait, Oriented X3, Other (No focal deficits on examination). negative: Motor sensory deficit - Psychiatric Psychiatric exam: Normal affect, Normal mood - Skin Skin exam: Normal color. negative: Abrasion Type of lesion: negative: abrasion Course - Reevaluation(s) Reevaluation #1: 02/03/19 20:21 EKG: NSR 65 IVCD, nonspecific ST-T wave changes Reevaluation #2: 02/03/19 21:15 Laboratory studies were reviewed and are grossly unremarkable except for: CO2 19 LA 1.5 (normal) Troponin <0.01 Hgb 12.9 UA pending at this time. Reevaluation #3: 02/03/19 21:25 UA was reviewed: 4+ amorphous sediment 0-2 WBCs 0-2 RBCs Bacteria: None Patient and family members were updated on all results thus far, likely plan for admission pending radiology interpretation of CT brain and CXR. Will continue to observe. Reevaluation #4: 02/03/19 22:13 CT Brain: Stable changes with respect to prior study. CXR: Infiltrate left mid lung Small bilateral pleural effusions Patient and all family members were updated on results, thus far, will initiate treatment with Levaquin and Cefepime for HCAP, admit for further evaluation. Reevaluation #5: 02/04/19 06:47 Case was discussed with Minal Fischer NP, will accept admission at this time. Medical Decision Making - Lab Data Result diagrams: 02/03/19 20:30 02/03/19 20:30 Disposition Disposition: Admit Clinical Impression: HCAP (healthcare-associated pneumonia), Confusion Disposition: Still a Patient at [facility] Decision to Admit: Admit from ER Decision to Admit Date: 02/03/19 Decision to Admit Time: 22:33 Condition: (2) Stable Time of Disposition: 22:33 Quality - Quality Measures Quality Measures: N/A - Blood Pressure Screening Does Patient Have Any of the Following: Active Dx of HTN Blood Pressure Classification: Hypertensive Reading Systolic Measurement: 168 Diastolic Measurement: 56 Screening for High Blood Pressure: Patient Exclusion, Hx of HTN [G9744]
[2019-02-03] MEDS ORDERED: 0.9 % SODIUM CHLORIDE 1000ML 500 ML IV SCH (20:30)
[2019-02-03 20:35] LABS: BASO % 0.2 % (0-6); EOS % 1.4 % (0-6); HEMATOCRIT 37.2 % (42.0-52.0); HEMOGLOBIN 12.9 gm/dl (14.0-18.0); LYMPH % 3.8 % (16-45); MEAN CELL VOLUME 92.3 fl (81-97); MEAN CORPUSCULAR HGB CONC 34.7 g/dl (32-36); MEAN PLATELET VOLUME 10.7 fl (7.4-10.4); MONO % 6.8 % (0-9); PLATELET COUNT 149 K/uL (130-400); RED BLOOD COUNT 4.03 M/uL (4.40-5.70); RED CELL DISTRIBUTION WIDTH 13.1 % (11.5-14.5); WHITE BLOOD COUNT W/O DIFF 11.1 K/uL (4.2-12.2)
[2019-02-03 20:56] LABS: BLOOD UREA NITROGEN 22 mg/dL (8-23); CREATININE 1.3 mg/dL (0.7-1.2); EST GLOMERULAR FILTRATION RATE 57 mL/min; LACTIC ACID 1.5 mmol/L (0.5-2.2)
[2019-02-03 20:57] LABS: TOTAL PROTEIN 5.9 g/dL (6.6-8.7)
[2019-02-03 21:01] LABS: ALB/GLOB RATIO 1.1 (1.1-1.8); ALBUMIN 3.1 g/dL (4.0-5.0); ALKALINE PHOSPHATASE 99 U/L (40-129); ALT/SGPT 11 U/L (<41); AST/SGOT 13 U/L (10.0-50.0); GLUCOSE,RANDOM 175 mg/dL (74-109)
[2019-02-03 21:02] LABS: AMMONIA 20 umol/L (16.0-60.0)
[2019-02-03 21:13] LABS: URINE APPEARANCE CLOUDY; URINE BILIRUBIN NEGATIVE (NEGATIVE); URINE BLOOD MODERATE (NEGATIVE); URINE COLOR YELLOW; URINE GLUCOSE (UA) NEGATIVE (NEGATIVE); URINE KETONE TRACE (NEGATIVE); URINE LEUKOCYTE ESTERASE NEGATIVE (NEGATIVE); URINE NITRITE NEGATIVE (NEGATIVE); URINE UROBILINOGEN 0.2 E.U./dL (0.20 - 1.00)
[2019-02-03 21:23] LABS: URINE EPITHELIAL CELLS NONE SEEN (FEW); URINE PROTEIN 300 mg/dL (NEGATIVE); URINE RBC 0 - 2 (NONE SEEN); URINE WBC 0 - 2 (0-2/hpf)
[2019-02-03 21:24] LABS: URINE AMORPHOUS SEDIMENT 4+
[2019-02-03 21:29] LABS: PLATELET ESTIMATE NORMAL (NORMAL)
[2019-02-03] MEDS ORDERED: LEVOFLOXACIN 250MG IVPB 250 MG/50 ML BAG IVPB ONE (22:28)
[2019-02-03] MEDS ORDERED: ACETAMINOPHEN 325 MG TAB PO PRN (23:15)
[2019-02-04] MEDS: 0.9 % SODIUM CHLORIDE 1000ML 1,000 ML IV PRN ×2 (00:02→08:36)
[2019-02-04] MEDS: CEFEPIME HCL 2 GM in 0.9 % SODIUM CHLORIDE 100ML 100 ML IVPB SCH ×2 (00:02→11:35)
[2019-02-04] MEDS ORDERED: LEVOFLOXACIN 500MG IVPB 500 MG/100 ML BAG IVPB SCH (01:00)
--- NOTE | 2019-02-04 07:49 | CT SCAN REPORT ---
EXAM: CT SCAN OF THE HEAD HISTORY: PATIENT HAS CONFUSION. TECHNIQUE: Serial axial CT scan of the head was performed at 2.5 mm intervals from the base of the skull to the apex without the use of intravenous contrast. Sagittal and coronal reconstructions are provided. Comparison: CT scan of the head dated 01/08/17 and 10/17/16 are provided. FINDINGS: Bone windows demonstrate post craniotomy changes within the left frontal scalp. There is moderate generalized parenchymal volume loss. There is enlargement of the left frontal horn with encephalomalacia involving the left frontal lobe. These findings are unchanged with respect to the prior examination. There is a small focus of increased density within the left cortex which is also unchanged with respect to the prior examination. There is no CT evidence of a new, acute intra or extraaxial fluid collection to suggest bleeding. There is deviation of the frontal falx towards the right which is unchanged with respect to the prior examination. Otherwise, there is no significant mass or mass effect identified. Bone windows demonstrate air fluid levels within the paranasal sinuses with moderate mucosal thickening. These findings suggest acute and chronic sinusitis. Clinical correlation is recommended. IMPRESSION: 1. STABLE CT APPEARANCE OF THE BRAIN AND POST CRANIOTOMY CHANGES WITH RESPECT TO THE PRIOR EXAMINATION. 2. AIR FLUID LEVELS WITH MUCOSAL THICKENING WITHIN THE PARANASAL SINUSES SUGGEST ACUTE AND CHRONIC SINUSITIS. CLINICAL CORRELATION IS RECOMMENDED. JOB NUMBER: [id number] [facility]
--- NOTE | 2019-02-04 07:54 | RADIOLOGY REPORT ---
EXAM: CHEST, TWO VIEWS HISTORY: PATIENT HAS HISTORY OF BRAIN TUMOR. TECHNIQUE: Two views of the chest are provided along with the comparison study dated 11/14/17. FINDINGS: The cardiac silhouette is magnified. The aminah appear unremarkable. There is a questionable subtle patchy infiltrate within the left mid lung field. Mild pleural effusions are suspected. IMPRESSION: FINDINGS SUSPICIOUS FOR SUBTLE INTERSTITIAL INFILTRATE WITHIN THE LEFT MID LUNG FIELD. FOLLOW-UP PA AND LATERAL VIEWS OF THE CHEST CAN BE OBTAINED UNTIL RESOLUTION OF FINDINGS. JOB NUMBER: [id number] [facility]
[2019-02-04 09:11] LABS: HEMATOCRIT 34.6 % (42.0-52.0); HEMOGLOBIN 11.9 gm/dl (14.0-18.0); MEAN CELL VOLUME 92.5 fl (81-97); MEAN CORPUSCULAR HEMOGLOBIN 31.8 pg (27-33); MEAN CORPUSCULAR HGB CONC 34.4 g/dl (32-36); MEAN PLATELET VOLUME 10.4 fl (7.4-10.4); PLATELET COUNT 135 K/uL (130-400); RED BLOOD COUNT 3.74 M/uL (4.40-5.70); RED CELL DISTRIBUTION WIDTH 13.2 % (11.5-14.5); WHITE BLOOD COUNT W/O DIFF 7.7 K/uL (4.2-12.2)
[2019-02-04 09:24] LABS: BLOOD UREA NITROGEN 19 mg/dL (8-23); CREATININE 1.1 mg/dL (0.7-1.2); EST GLOMERULAR FILTRATION RATE > 60 mL/min; GLUCOSE,RANDOM 134 mg/dL (74-109)
[2019-02-04] MEDS: LISINOPRIL 10 MG TABLET PO SCH (09:51)
[2019-02-04] MEDS: METOPROLOL SUCC 25 MG TAB.ER PO SCH (09:51)
[2019-02-04] MEDS: TAMSULOSIN HCL 0.4 MG CAP.ER.24H PO SCH ×2 (09:51→22:47)
[2019-02-04] MEDS ORDERED: PNEUM 13-VAL/PF 0.5 ML IM ONE (10:00)
[2019-02-04] MEDS ORDERED: 0.9 % SODIUM CHLORIDE 1000ML 1,000 ML IV PRN (10:41)
[2019-02-04] MEDS ORDERED: ZINC OXIDE 28.35 GM TUBE TOP PRN (11:14)
--- NOTE | 2019-02-04 12:12 | History & Physical ---
History of Present Illness - Date of Service Date of Service for History & Physical: 02/04/19 - History of Present Illness Admitting Diagnosis: HCAP. Confusion History of Present Illness: 73 year old male patient presented to ED for evaluation of increasing weakness and confusion over the past few days. Daughter reports patient had been coughing for several days. Patient lives at an assisted living facility. Daughter states that while talking to patient on the phone today he was markedly more confused than baseline. Daughter reported a history of brain cancer s/p tumor removal. Past medical history also includes: craniotomy, HTN, DM, BPH, GERD, CAD, and depression PCP: Flor Holcomb NP ED Course: EKG: NSR 65, IVCD with nonspecific ST-T wave changes CBC, CMP unremarkable, lactic acid 1.5, troponin negative UA: 4+ amorphous sediment, 0-2 WBCs, 0-2 RBCs, no bacteria CXR: RML infiltrates Head CT: unchanged from baseline surgical changes 02/04/19: Patient oriented to self only. Resting comfortably in bed, no acute distress. Will continue with Levaquin and Cefepime for HCAP. Travel Screening - Travel/Exposure Within Last 30 Days Have you traveled within the last 30 days?: No - Travel/Exposure Within Last Year Have you traveled outside the [place] in the last year?: No - Additonal Travel Details Have you been exposed to anyone with a communicable illness?: No - Travel Symptoms Symptom Screening: None Review of Systems Reviewed: No additional complaints except as noted below Constitutional: Reports: Weakness Respiratory: Reports: Cough Neurological: Reports: Abnormal gait, Confusion Past Medical History - SOCIAL HISTORY Smoking Status: Former smoker - RESPIRATORY Hx Respiratory Disorders: Yes - CARDIOVASCULAR Hx Cardio Disorders: Yes Hx Cardiac Cath: Yes Hx Hypertension: Yes (on meds good control now) Hx Coronary Stent: Yes - NEURO Hx Neuro Disorders: Yes Hx Brain Tumor: Yes (benign cysts removed) Hx CVA: Yes (8 since ) Hx Dementia: Yes (mild) Hx Headaches: No (no problem with this recently) Hx of Migraines: No (no problem recently) 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) Hx Speech Problem: Yes (slow to speak at times) Hx TIA: Yes (February 2016) Hx Weakness: Yes (generalized) - GI Hx GI Disorders: Yes Hx Reflux: Yes - Hx Genitourinary Disorders: Yes Hx Bladder Problem: Yes (incont-wears adult depends) Hx Prostate Problems: Yes (TURP) Hx UTI: Yes (none recently(past year)) - ENDOCRINE Hx Endocrine Disorders: Yes Hx Diabetes: Yes - MUSCULOSKELETAL Hx Musculoskeletal Disorders: Yes Hx Arthritis: Yes (rt shoulder & rt knee) - PSYCH Hx Psych Problems: Yes Hx Depression: Yes - HEMATOLOGY/ONCOLOGY Hx Hematology/Oncology Disorders: No Family Medical History Hx Diabetes: Children Hx Heart Disease: Children, Brother/Sister H&P Meds/Allergies - Allergies Allergies: Allergies Allergy/AdvReac Type Severity Reaction Status Date / Time Iodinated Contrast- Oral and Allergy Intermediate "sets him Unverified 09/12/18 10:54 IV Dye on fire or [Iodinated Contrast Media - something." IV Dye] sertraline HCl [From Zoloft] Allergy Intermediate PT UNSURE Unverified 09/12/18 10:54 OF REACTION - Active Medications Active Medications: Current Medications Acetaminophen (Tylenol 325mg) 650 mg PO Q6H PRN PRN Reason: PAIN - MILD(1-4)/FEVER Last Admin: 02/04/19 11:20 Dose: 650 mg Atorvastatin Calcium (Lipitor) 40 mg PO QHS [facility] Citalopram Hydrobromide (Celexa) 40 mg PO DAILY [facility] Docusate Sodium (Colace) 100 mg PO DAILY [facility] Enoxaparin Sodium (Lovenox) 40 mg SQ DAILY [facility] CEFEPIME HCL 2 gm/ Sodium (Chloride) 100 mls @ 200 mls/hr IVPB Q12H [facility] Last Admin: 02/04/19 11:35 Dose: 200 mls/hr Levofloxacin/Dextrose (Levaquin 750mg Ivpb) 750 mg in 150 mls @ 125 mls/hr IVPB Q24H [facility] Stop: 02/10/19 01:01 Levofloxacin/Dextrose (Levaquin 500mg Ivpb) 500 mg in 100 mls @ 100 mls/hr IVPB ONCE [facility]ENN[facility]ER Stop: 02/09/19 01:01 Sodium Chloride () 1,000 mls @ 50 mls/hr IV .Q20H PRN PRN Reason: LARGE VOLUME IV Lisinopril (Zestril) 10 mg PO DAILY [facility] Last Admin: 02/04/19 09:51 Dose: 10 mg Metoprolol Succinate (Toprol Xl) 25 mg PO DAILY [facility] Last Admin: 02/04/19 09:51 Dose: 25 mg Oxybutynin Chloride (Ditropan) 5 mg PO QHS [facility] Tamsulosin HCl (Flomax) 0.4 mg PO BID [facility] Last Admin: 02/04/19 09:51 Dose: 0.4 mg Topiramate (Topiramate) 50 mg PO BID [facility] Zinc Oxide (Desitin) 10 gm TOP ASDIR PRN PRN Reason: RASH Last Admin: 02/04/19 11:20 Dose: 10 gm Physical Exam - Vital Signs Vital Signs: Vital Signs - Last 24 Hrs Temp Pulse Pulse Pulse Pulse Resp BP 02/04/19 08:00 99.2 F 65 18 02/04/19 04:00 98.2 F 63 18 02/03/19 23:32 98.3 F 59 L 18 02/03/19 23:00 98.8 F 62 16 02/03/19 20:09 98.1 F 67 16 168/56 BP BP Pulse Ox 02/04/19 08:00 151/73 93 L 02/04/19 04:00 163/74 95 02/03/19 23:32 153/77 97 02/03/19 23:00 153/73 94 L 02/03/19 20:09 96 - General General Appearance: Cooperative, No acute distress, Other (Appears fatigued, oriented to self) Limitations: Altered mental status - Head Head exam: Atraumatic, Normocephalic, Normal inspection Head exam detail: negative: Abrasion, Contusion, Bianchi's sign, General tenderness, Hematoma, Laceration - Eye Eye exam: Normal appearance. negative: Conjunctival injection, Periorbital swelling, Periorbital tenderness, Scleral icterus - ENT ENT exam: Normal exam Ear exam: negative: Auricular hematoma, Auricular trauma Nasal Exam: negative: Active bleeding, Discharge, Dried blood, Foreign body Mouth exam: negative: Drooling, Laceration, Muffled voice, Tongue elevation - Neck Neck exam: Normal inspection. negative: Meningismus, Tenderness - Respiratory Respiratory exam: Normal lung sounds bilaterally. negative: Rales, Respiratory distress, Rhonchi, Stridor - Cardiovascular Cardiovascular Exam: Regular rate, Normal rhythm, Normal heart sounds Peripheral Pulses: 2+: Radial (R), Radial (L), Dorsalis Pedis (R), Dorsalis Pedis (L) - GI/Abdominal GI/Abdominal exam: Soft, Tenderness. negative: Rebound, Rigid - Rectal Rectal exam: Deferred - exam: Deferred - Extremities Extremities exam: Normal inspection. negative: Pedal edema, Tenderness - Back Back exam: Denies: CVA tenderness (R), CVA tenderness (L) - Neurological Neurological exam: Alert, Other (No focal deficits on examination). negative: Motor sensory deficit - Skin Skin exam: Normal color. negative: Abrasion Type of lesion: negative: abrasion Results - Labs Result Diagrams: 02/04/19 09:02 02/04/19 09:02 Labs Last 24 Hours: Laboratory Results - last 24 hr 02/03/19 02/03/19 02/03/19 20:30 20:30 Unknown WBC 11.1 RBC 4.03 L Hgb 12.9 L Hct 37.2 L MCV 92.3 MCH 32.0 MCHC 34.7 RDW 13.1 Plt Count 149 MPV 10.7 H Neutrophils % 88.0 H Band Neutrophils % 6.0 H Lymphocytes % 3.8 L Monocytes % 6.8 Eosinophils % 1.4 Basophils % 0.2 Lymphocytes 4.0 L Monocytes 1.0 Platelet Estimate Normal RBC Morphology Normal Eosinophil Count 1.0 Sodium 140 Potassium 4.3 Chloride 108 H Carbon Dioxide 19.0 L Anion Gap 13.0 BUN 22 Creatinine 1.3 H Estimated GFR 57 Random Glucose 175 H Lactic Acid 1.5 Calcium 8.0 L Total Bilirubin 0.60 AST 13 ALT 11 Alkaline Phosphatase 99 Ammonia 20 Troponin T < 0.010 Total Protein 5.9 L Albumin 3.1 L Globulin 2.8 Albumin/Globulin Ratio 1.1 Urine Color Yellow Urine Appearance Cloudy Urine pH 5.5 Ur Specific [place] >= 1.030 Urine Protein 300 mg/dl H Urine Glucose (UA) Negative Urine Ketones Trace H Urine Blood Moderate Urine Nitrite Negative Urine Bilirubin Negative Urine Urobilinogen 0.2 Ur Leukocyte Esterase Negative Urine RBC 0 - 2 Urine WBC 0 - 2 Ur Epithelial Cells None seen Amorphous Sediment 4+ 02/04/19 02/04/19 09:02 09:02 WBC 7.7 RBC 3.74 L Hgb 11.9 L Hct 34.6 L MCV 92.5 MCH 31.8 MCHC 34.4 RDW 13.2 Plt Count 135 MPV 10.4 Neutrophils % 81.0 H Band Neutrophils % Lymphocytes % Monocytes % Eosinophils % Not Reportable Basophils % Not Reportable Lymphocytes 11.0 L Monocytes 7.0 Platelet Estimate RBC Morphology Eosinophil Count 1.0 Sodium 141 Potassium 4.0 Chloride 114 H Carbon Dioxide 20.0 L Anion Gap 7.0 BUN 19 Creatinine 1.1 Estimated GFR > 60 Random Glucose 134 H Lactic Acid Calcium 7.4 L Total Bilirubin AST ALT Alkaline Phosphatase Ammonia Troponin T Total Protein Albumin Globulin Albumin/Globulin Ratio Urine Color Urine Appearance Urine pH Ur Specific [place] Urine Protein Urine Glucose (UA) Urine Ketones Urine Blood Urine Nitrite Urine Bilirubin Urine Urobilinogen Ur Leukocyte Esterase Urine RBC Urine WBC Ur Epithelial Cells Amorphous Sediment VTE H&P Assessment - Risk for VTE Risk for VTE: Yes Risk Level: High Risk Assessment Date: 02/04/19 Risk Assessment Time: 12:13 VTE Orders Placed or Will Be Placed: Yes Plan - Inpatient Certification Inpatient Certification: Admit to inpatient care: Based on my medical assessment, after consideration of patient's risk factors (age, co-morbidities and patient presenting symptoms and acuity), I expect that this patient will remain in the hospital greater than or equal to two midnights and that the services needed warrant inpatient care because: Patient Risk Factors: [age, pneumonia, confusion, weakness] Estimated length of stay: The patient may reasonably be expected to be discharged or transferred to a hospital within 48-72 hours after admission to [facility]. Services needed: [IV antibiotics, lab monitoring, PT/OT services] Post hospital care (if known): [] I certify that my determination is in accordance with my understanding of Medicare requirements for reasonable and necessary inpatient services. 02/04/19 12:13 - Detailed Diagnosis and Plan (1) Community acquired pneumonia Current Visit: Yes Status: Acute Base Code: J18.9 - PNEUMONIA, UNSPECIFIED ORGANISM Comment: 02/04/19: - CXR indicates LML PNA - Lactic acid 1.5, WBC 7 - Levaquin 750mg q24h and Cefepine 2gm q12h started in ED - Afebrile - Monitor VS q4h, supplemental oxygen prn to keep pulse ox >92% (2) Confusion Current Visit: Yes Status: Acute Base Code: R41.0 - DISORIENTATION, UNSPECIFIED Comment: 02/04/19: - UA negative for acute infection - Troponin negative - Head CT: post-op craniotomy changes noted, no acute process - CXR: LML PNA (3) Weakness Current Visit: Yes Status: Acute Base Code: R53.1 - WEAKNESS Comment: 02/04: - New onset weakness for the past 3-4 days - Likely due to PNA - PT/OT to evaluate (4) DVT prophylaxis Current Visit: No Status: Acute Base Code: [id number] - Comment: 02/04/19: -High risk due to age, hospitalization, and illness -History of hemorrhagic CVA and fall risk -Will apply SCDs while in bed (5) DNR (do not resuscitate) Current Visit: Yes Status: Acute Base Code: Z66 - DO NOT RESUSCITATE Comment: 02/04/19: -Patient is a DNR
[2019-02-04] MEDS: CITALOPRAM 20 MG TABLET PO SCH (13:54)
[2019-02-04] MEDS: TOPIRAMATE 25MG TABLET PO SCH ×2 (13:54→22:47)
[2019-02-04] MEDS: DOCUSATE SODIUM 100 MG CAPSULE PO SCH (13:54)
--- NOTE | 2019-02-04 15:59 | Rehab Evaluation ---
Patient Information - Patient Information Diagnosis: HCAP,confusion Ordered Treatment: PT Evaluate and Treat Status: Initial Evaluation Past Medical/Surgical Hx: PAST MEDICAL/SURGICAL HISTORY Past Surgical History cardiac stents x 2- 2007& 2008; knee replacement rt; brain cyst removed x's 3; c scope; cysto TURP. cataract removal right eye PMH - Respiratory Hx Respiratory Disorders Yes Hx Pneumonia Yes Hx of SOB Yes: with exertion PMH - Cardiovascular Hx Cardiovascular Disorders Yes Hx Cardiac Catheterization Yes Hx Chest Pain Yes Hx Hypertension Yes: on meds good control now Hx Coronary Stent Yes Hx Transient Ischemic Attacks Yes: February 2016 (TIA) Residual Deficits from CVA Yes Hx of Migraines No: no problem recently PMH - Neuro Hx Neurological Disorders Yes Hx Brain Tumor Yes: benign cysts removed Hx Cerebrovascular Accident Yes: 8 since Hx Dementia Yes: mild Hx Dizziness Yes Hx Headaches No: no problem with this recently 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 activity for 20 years Hx Speech Problem Yes: slow to speak at times Hx Transient Ischemic Attacks Yes: February 2016 (TIA) Hx Weakness Yes: generalized PMH - GI Hx Gastrointestinal Disorders Yes Hx Gastroesophageal Reflux Yes Hx Nausea/Vomiting Yes Comment: hx of strokes-he has occasional problem with swallowing liquids PMH - Hx Genitourinary Disorders Yes Hx Bladder Problem Yes: incont-wears adult depends Hx Prostate Problems Yes: TURP Hx Urinary Tract Infection Yes: none recently(past year) PMH - Endocrine Hx Endocrine Disorders Yes Hx Diabetes Yes Hx of NIDDM Yes Comment: accucheck 201 yesterday. normally 170-180. PMH - Musculoskeletal Hx Musculoskeletal Disorders Yes Hx Arthritis Yes: rt shoulder & rt knee PMH - Psych Hx Psychiatric Problems Yes Hx Anxiety Yes Hx Depression Yes PMH - Hematology/Oncology Hx Hematology/Oncology No Disorders Premorbid Status: Detail (The patient lives in an assisted living facility) Social History: Detail (The patient was a poor historian. The patient stated he walked without device.) Precautions: [place], Fall - Time With Patient Total Time Spent With Patient (Min): 30 Treatment Procedures: Detail (Initial Evaluation) Subjective Information - Subjective Information Per Patient (The patient complained of R shoulder pain with movement and bilateral knee pain. Patient stated Dr. Ruiz has examined his L knee. The patient was unable to rate his pain using 0-10 pain scale.) Objective Data - Mental Status Patient Orientation: Person, Place (The patient knew he was in [facility] Time (The patient did not no month or year. The patient did know the President. The patient was able to follow simple commands but was slow to respond.) - ROM Not within normal limits (The patient has bilateral limitations in knee extension L side greater then R, L knee extension aprox -45 degrees, R knee extension aprox. -20 degrees.) - Strength/Tone Not within normal limits (The patient's knee musculature was generally 4-/5, ankle musculature 4+/5, hip musculature 4/5.) - Bed Mobility Needs Assist (Supine to sit Mod PA of 1) - Transfers Independent (Sit to and from stand minimal PA of 1.) - Balance Balance Sitting: Fair (The patient leaned back when putting pants on.) Balance Standing: Fair (The patient required support of walker to stand.) - Gait Detail (The patient ambulated with front walker a distance of 25 feet x 1 with CG of 1 plus verbal cues for technique.) Therapy Assessment - Therapy Assessment Detail (The patient exhibited decreased sitting and standing balance, assistance with bed mobility and transfers and ambulated limited distances with CG for safety. The patient would benefit from ongoing Home PT once discharged from [facility] to return to previous functional level.) Problem List - Problem List Physical Therapy Problem List: Detail (1) Assistance with bed mobility, transfers 2) Impaired ambulation 3) Limited bilateral knee AROM 4) Decreased bilateral LE strength) Goals - Goals Physical Therapy Goals: 1) The patient will be independent/minimal assist with bed mobility. 2) The patient will require CG/supervision with sit to and from stand transfer. 3) The patient will ambulate household distances with appropriate assistive device with supervision for safety. Prognosis - Prognosis Good Plan - Plan Physical Therapy Plan: PT M-F one time a day for bed mobility, transfer training , gait training.
--- NOTE | 2019-02-04 16:03 | Rehab Evaluation ---
Patient Information - Patient Information Diagnosis: HCAP, confusion Ordered Treatment: OT Evaluate and Treat Status: Initial Evaluation Surgery: No Past Medical/Surgical Hx: PAST MEDICAL/SURGICAL HISTORY Past Surgical History cardiac stents x 2- 2007& 2008; knee replacement rt; brain cyst removed x's 3; c scope; cysto TURP. cataract removal right eye PMH - Respiratory Hx Respiratory Disorders Yes Hx Pneumonia Yes Hx of SOB Yes: with exertion PMH - Cardiovascular Hx Cardiovascular Disorders Yes Hx Cardiac Catheterization Yes Hx Chest Pain Yes Hx Hypertension Yes: on meds good control now Hx Coronary Stent Yes Hx Transient Ischemic Attacks Yes: February 2016 (TIA) Residual Deficits from CVA Yes Hx of Migraines No: no problem recently PMH - Neuro Hx Neurological Disorders Yes Hx Brain Tumor Yes: benign cysts removed Hx Cerebrovascular Accident Yes: 8 since Hx Dementia Yes: mild Hx Dizziness Yes Hx Headaches No: no problem with this recently 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 activity for 20 years Hx Speech Problem Yes: slow to speak at times Hx Transient Ischemic Attacks Yes: February 2016 (TIA) Hx Weakness Yes: generalized PMH - GI Hx Gastrointestinal Disorders Yes Hx Gastroesophageal Reflux Yes Hx Nausea/Vomiting Yes Comment: hx of strokes-he has occasional problem with swallowing liquids PMH - Hx Genitourinary Disorders Yes Hx Bladder Problem Yes: incont-wears adult depends Hx Prostate Problems Yes: TURP Hx Urinary Tract Infection Yes: none recently(past year) PMH - Endocrine Hx Endocrine Disorders Yes Hx Diabetes Yes Hx of NIDDM Yes Comment: accucheck 201 yesterday. normally 170-180. PMH - Musculoskeletal Hx Musculoskeletal Disorders Yes Hx Arthritis Yes: rt shoulder & rt knee PMH - Psych Hx Psychiatric Problems Yes Hx Anxiety Yes Hx Depression Yes PMH - Hematology/Oncology Hx Hematology/Oncology No Disorders Premorbid Status: Detail (Pt presented to ED on 02/03/19 with several days of increased weakness and confusion.) Social History: Detail (Per chart pt resides in an [facility]. It is unclear his level of independence with self cares previously. He reports he ambulates without any assistive device. Pt is poor historian.) Precautions: [place], Fall, Other (impaired cognition) - Time With Patient Total Time Spent With Patient (Min): 40 Treatment Procedures: Detail (OT eval low complexity) Subjective Information - Subjective Information Per Patient Objective Data - Pain Pain Present: Yes (Pt reports pain in right shoulder, he was unable to state a number.) - Mental Status Patient Orientation: Person (Pt oriented to self, birthday, age, location, president, reason for hospitalization. He was not able to state month or year. He was able to follow commands for evaluation.), Place - Visual Perception Appears within normal limits for therapeutic activities - ROM Not within normal limits (Boo shoulder flexion limited to approx. 90 degrees flexion, boo elbow and hand AROM grossly WFL.) - Strength/Tone Not within normal limits (Boo shoulder flexion 3-/5, boo elbows and trust officer strength 4+/5) - Coordination Appears within normal limits for therapeutic activities - Bed Mobility Needs Assist (Supine to sit with mod assist x 1.) - Transfers Needs Assist (Min assist x 2 for sit to stand from EOB.) - Balance Balance Sitting: Fair (Pt had fair static sitting balance, he was unable to lean forward for donning pants.) Balance Standing: Fair - Sensation Intact - Gait Detail (Pt amb several feet with 2 wheeled walker and CG assist x 1.) - ADL's/IADL's Detail (Pt required max assist to don PJ bottoms over feet, he was able to perform sit to stand with min assist x 2 and pull pants over hips with CG assist. Per nursing pt has been requiring total assist for eating.) Therapy Assessment - Therapy Assessment Detail (Pt presents with fatigue during mobility and self cares, decreased Ind with self cares and functional mobility, impaired cognition and decreased UE strength.) Problem List - Problem List Occupational Therapy Problem List: Detail (1. Decreased Ind with self care tasks. 2. Decreased Ind with functional mobility. 3. Decreased cognition) Goals - Goals Occupational Therapy Goals: 1. Pt will be Ind with total body dressing. 2. Pt will be safe and Ind with bed mobility and ambulating short distances to allow self cares. 3. Pt will be oriented x 3 Prognosis - Prognosis Moderate Plan - Plan Occupational Therapy Plan: OT 1-3 times per week. Recommend home OT to maximize safety and Ind with self cares, cognition and functional mobility.
[2019-02-04] MEDS ORDERED: OXYBUTYNIN CHLORIDE 5MG TABLET PO SCH (22:00)
[2019-02-04] MEDS ORDERED: ATORVASTATIN 20 MG TABLET PO SCH (22:00)
[2019-02-05] MEDS: CEFEPIME HCL 2 GM in 0.9 % SODIUM CHLORIDE 100ML 100 ML IVPB SCH ×2 (00:18→11:59)
[2019-02-05] MEDS ORDERED: LEVOFLOXACIN/D5W 750 MG/150 ML BAG IVPB SCH (01:00)
[2019-02-05 06:42] LABS: BASO % 0.4 % (0-6); EOS % 4.1 % (0-6); GRAN % 71.6 % (47-80); HEMATOCRIT 33.2 % (42.0-52.0); HEMOGLOBIN 11.3 gm/dl (14.0-18.0); LYMPH % 14.7 % (16-45); MEAN CELL VOLUME 92.7 fl (81-97); MEAN PLATELET VOLUME 10.5 fl (7.4-10.4); MONO % 9.2 % (0-9); PLATELET COUNT 125 K/uL (130-400); RED BLOOD COUNT 3.58 M/uL (4.40-5.70); RED CELL DISTRIBUTION WIDTH 13.3 % (11.5-14.5); WHITE BLOOD COUNT W/O DIFF 5.3 K/uL (4.2-12.2)
[2019-02-05 06:54] LABS: MEAN CORPUSCULAR HEMOGLOBIN 31.5 pg (27-33)
[2019-02-05 07:01] LABS: BLOOD UREA NITROGEN 19 mg/dL (8-23); CREATININE 1.1 mg/dL (0.7-1.2); EST GLOMERULAR FILTRATION RATE > 60 mL/min; GLUCOSE,RANDOM 111 mg/dL (74-109)
[2019-02-05] MEDS ORDERED: ENOXAPARIN 40 MG/0.4 ML SYR SQ SCH (10:00)
[2019-02-05] MEDS: TAMSULOSIN HCL 0.4 MG CAP.ER.24H PO SCH (10:04)
[2019-02-05] MEDS: TOPIRAMATE 25MG TABLET PO SCH (10:04)
[2019-02-05] MEDS: CITALOPRAM 20 MG TABLET PO SCH (10:05)
[2019-02-05] MEDS: METOPROLOL SUCC 25 MG TAB.ER PO SCH (10:05)
[2019-02-05] MEDS: LISINOPRIL 10 MG TABLET PO SCH (10:05)
[2019-02-05] MEDS: DOCUSATE SODIUM 100 MG CAPSULE PO SCH (10:06)
--- NOTE | 2019-02-05 16:09 | Discharge Summary ---
Providers Discharge Summary Date: 02/05/19 Date of admission: 02/03/19 22:59 Expected Date of Discharge: 02/05/19 Attending physician: KHAI FERNANDO Primary care physician: KHAI FERNANDO Physical Exam - Vital Signs Vital Signs: Vital Signs - Last 24 Hrs Temp Pulse Resp BP Pulse Ox 02/05/19 12:00 59 L 16 144/72 95 02/05/19 08:30 98.8 F 54 L 16 167/68 93 L 02/05/19 03:54 99.1 F 56 L 18 187/75 95 02/04/19 20:00 98.9 F 56 L 18 151/78 95 - General General Appearance: Cooperative, No acute distress, Other (oriented to self) - Head Head exam: Atraumatic, Normocephalic, Normal inspection Head exam detail: negative: Abrasion, Contusion, Bianchi's sign, General tenderness, Hematoma, Laceration - Eye Eye exam: Normal appearance. negative: Conjunctival injection, Periorbital swelling, Periorbital tenderness, Scleral icterus - ENT ENT exam: Normal exam Ear exam: negative: Auricular hematoma, Auricular trauma Nasal Exam: negative: Active bleeding, Discharge, Dried blood, Foreign body Mouth exam: negative: Drooling, Laceration, Muffled voice, Tongue elevation - Neck Neck exam: Normal inspection. negative: Meningismus, Tenderness - Respiratory Respiratory exam: Normal lung sounds bilaterally. negative: Rales, Respiratory distress, Rhonchi, Stridor - Cardiovascular Cardiovascular Exam: Regular rate, Normal rhythm, Normal heart sounds Peripheral Pulses: 2+: Radial (R), Radial (L), Dorsalis Pedis (R), Dorsalis Pedis (L) - GI/Abdominal GI/Abdominal exam: Soft, Normal bowel sounds. negative: Rebound, Rigid, Tenderness - Rectal Rectal exam: Deferred - exam: Deferred - Extremities Extremities exam: Normal inspection. negative: Pedal edema, Tenderness - Back Back exam: Denies: CVA tenderness (R), CVA tenderness (L) - Neurological Neurological exam: Alert, Other (No focal deficits on examination). negative: Motor sensory deficit - Psychiatric Psychiatric exam: Normal affect, Normal mood - Skin Skin exam: Normal color. negative: Abrasion Type of lesion: negative: abrasion Hospitalization - Hospitalization Admission Diagnosis: HCAP. Confusion - Problem List/Discharge Diagnosis (1) Community acquired pneumonia Current Visit: Yes Status: Acute Base Code: J18.9 - PNEUMONIA, UNSPECIFIED ORGANISM Comment: 02/05/19: - CXR indicates LML PNA - Lactic acid 1.5, WBC 7 - Levaquin 750mg q24h and Cefepine 2gm q12h started in ED - Afebrile - Monitor VS q4h, supplemental oxygen prn to keep pulse ox >92% - Will continue Levaquin 750mg PO for 4 additional days on DC (2) Confusion Current Visit: Yes Status: Acute Base Code: R41.0 - DISORIENTATION, UNSPECIFIED Comment: 02/05/19: - UA negative for acute infection - Troponin negative - Head CT: post-op craniotomy changes noted, no acute process - CXR: LML PNA - Confusion has cleared and patient's mental status has returned to baseline (3) Weakness Current Visit: Yes Status: Acute Base Code: R53.1 - WEAKNESS Comment: 02/05: - New onset weakness for the past 3-4 days - Likely due to PNA - PT/OT to evaluate - Patient ambulating in halls at this time with minimal assistance - Home with walker (4) DVT prophylaxis Current Visit: No Status: Acute Base Code: [id number] - Comment: 02/05/19: -High risk due to age, hospitalization, and illness -History of hemorrhagic CVA and fall risk -Will apply SCDs while in bed (5) DNR (do not resuscitate) Current Visit: Yes Status: Acute Base Code: Z66 - DO NOT RESUSCITATE Comment: 02/05/19: -Patient is a DNR - Disposition Return to previous AF - Hospitalization Course Disposition: Assisted Care Facility Hospital Course: 73 year old male patient presented to ED for evaluation of increasing weakness and confusion over the past few days. Daughter reports patient had been coughing for several days. Patient lives at an assisted living facility. Daughter states that while talking to patient on the phone today he was markedly more confused than baseline. Daughter reported a history of brain cancer s/p tumor removal. Past medical history also includes: craniotomy, HTN, DM, BPH, GERD, CAD, and depression PCP: Flor Holcomb NP ED Course: EKG: NSR 65, IVCD with nonspecific ST-T wave changes CBC, CMP unremarkable, lactic acid 1.5, troponin negative UA: 4+ amorphous sediment, 0-2 WBCs, 0-2 RBCs, no bacteria CXR: RML infiltrates Head CT: unchanged from baseline surgical changes 02/04/19: Patient oriented to self only. Resting comfortably in bed, no acute distress. Will continue with Levaquin and Cefepime for HCAP. 02/05/19: Patient's mentation significantly improved today. Interacting with staff, ambulating in halls with PT/OT. WBC remains unchanged, afebrile, no respiratory distress. Will dc back to [facility] home with Levaquin 750mg PO daily x 4 additional days and walker. Patient to follow-up with PCP next week. Procedures: Imaging and X-Rays 02/03/19 20:16 CHEST 2 VIEWS [RAD] Stat HEAD WO CONTRAST [CT] Stat Cardiology Procedures 02/03/19 20:06 EKG NOW Abnormal Labs: Abnormal Lab Results 02/03/19 02/03/19 02/03/19 Range/Units 20:30 20:30 Unknown RBC 4.03 L (4.40-5.70) M/uL Hgb 12.9 L (14.0-18.0) gm/dl Hct 37.2 L (42.0-52.0) % Plt Count (130-400) K/uL MPV 10.7 H (7.4-10.4) fl Neutrophils % 88.0 H (47-80) % Band Neutrophils % 6.0 H (0-5) % Lymphocytes % 3.8 L (16-45) % Monocytes % (0-9) % Lymphocytes 4.0 L (16-45) % Chloride 108 H (98-107) mmol/L Carbon Dioxide 19.0 L (22-29) mmol/L Creatinine 1.3 H (0.7-1.2) mg/dL Random Glucose 175 H (74-109) mg/dL Calcium 8.0 L (8.8-10.2) mg/dL Total Protein 5.9 L (6.6-8.7) g/dL Albumin 3.1 L (4.0-5.0) g/dL Urine Protein 300 mg/dl H (NEGATIVE) Urine Ketones Trace H (NEGATIVE) 02/04/19 02/04/19 02/05/19 Range/Units 09:02 09:02 06:10 RBC 3.74 L 3.58 L (4.40-5.70) M/uL Hgb 11.9 L 11.3 L (14.0-18.0) gm/dl Hct 34.6 L 33.2 L (42.0-52.0) % Plt Count 125 L (130-400) K/uL MPV 10.5 H (7.4-10.4) fl Neutrophils % 81.0 H (47-80) % Band Neutrophils % (0-5) % Lymphocytes % 14.7 L (16-45) % Monocytes % 9.2 H (0-9) % Lymphocytes 11.0 L (16-45) % Chloride 114 H (98-107) mmol/L Carbon Dioxide 20.0 L (22-29) mmol/L Creatinine (0.7-1.2) mg/dL Random Glucose 134 H (74-109) mg/dL Calcium 7.4 L (8.8-10.2) mg/dL Total Protein (6.6-8.7) g/dL Albumin (4.0-5.0) g/dL Urine Protein (NEGATIVE) Urine Ketones (NEGATIVE) 02/05/19 Range/Units 06:10 RBC (4.40-5.70) M/uL Hgb (14.0-18.0) gm/dl Hct (42.0-52.0) % Plt Count (130-400) K/uL MPV (7.4-10.4) fl Neutrophils % (47-80) % Band Neutrophils % (0-5) % Lymphocytes % (16-45) % Monocytes % (0-9) % Lymphocytes (16-45) % Chloride 116 H (98-107) mmol/L Carbon Dioxide 19.0 L (22-29) mmol/L Creatinine (0.7-1.2) mg/dL Random Glucose 111 H (74-109) mg/dL Calcium 7.5 L (8.8-10.2) mg/dL Total Protein (6.6-8.7) g/dL Albumin (4.0-5.0) g/dL Urine Protein (NEGATIVE) Urine Ketones (NEGATIVE) Condition at Discharge: (2) Stable Discharge Medications - Discharge Medications Prescriptions: Levofloxacin [Levaquin] 750 mg PO DAILY #4 tab Home Medications: Ambulatory Orders Levofloxacin [Levaquin] 750 mg PO DAILY #4 tab 02/05/19 [Last Taken Unknown] Discharge Plan - Discharge Instructions Activity at Discharge: Increase Activity as Tolerated Diet at Discharge: Advance to Usual Diet Additional Instructions: -Starting tomorrow, 02/06/19, take the Levaquin (antibiotic) once daily -Follow-up with Flor as scheduled 02/13/13 at 1pm Quality Measures - Quality Measures Quality Measures: Advance Directives, Documentation of Current Medications in Medical Record, Elder Maltreatment Screen and Follow-Up Plan, Screening for High Blood Pressure and F/U Documented - Current Medications Quality Measure: Measure #130: Documentation of Current Medications Documentation of Current Medications: <Current Medications Documented/Reviewed> [G8427] - Blood Pressure Screening Quality Measure: Screening for High Blood Pressure and Follow-Up Documented Does Patient Have Any of the Following: Active Dx of HTN Blood Pressure Classification: Hypertensive Reading Systolic Measurement: 168 Diastolic Measurement: 56 Screening for High Blood Pressure: Patient Exclusion, Hx of HTN [G9744] - Advance Directives Quality Measure: Measure #47: Care Plan Advance Directives Established: Yes Advance Directives Information Provided To Patient: No Advance Directives on File: Yes Living Will: Yes Power of Production Supply Equipment Tender: Yes Power of Production Supply Equipment Tender Name: BARBARA CEDILLO Advance Care Planning: <Care Plan/Decision Maker Documented; Discussed & Documented> [1123F] - Elder Abuse Suspicion Index Screening: Elder Abuse Suspicion Index Screening Rely on people for bathing, dressing, shopping, banking, etc: No Prevented from getting food, clothes, medication, etc: No Made to feel shamed or threatened by someone: No Forced to sign papers or use money against will: No Feel afraid, touched in ways not wanted or hurt physically: No Poor eye contact, withdrawn, malnourished, cuts or bruises: No Screening Result: Negative result EASI Reference Information: Tamanna KURTZ, Thong C, Alexander D, Sara Stewart.Development and validation of a tool to assist physicians identification of elder abuse: The Elder Abuse Suspicion Index (EASI ). Journal of Elder Abuse and Neglect, 2008; 20 (3): 276-300. - Elder Maltreatment Screen Quality Measures: Elder Maltreatment Screen and Follow-Up Plan Elder Maltreatment Screen: <Negative, No Follow-Up Plan Required> [G8734]
--- NOTE | 2019-02-05 18:50 | Physical Therapy Tx Note ---
Physical Therapy Tx Note - Treatment Note Tolerated: Good Total Time Spent With Patient: 30 Physical Therapy Tx Note: Detail (Pt lying in bed upon arrival, awake/alert, cooperative for therapy. Required minimal assistance to come to sitting at edge of bed. Good sitting balance. Sit<>stand to front wheeled walker w/CGA for hygiene from nrsg, changing adult brief, donning scrub pants. Ambulated from bedside with front wheeled walker, CGA, and assist for IV pole to front hospital lobby and back to bedside chair (about 400 feet). Pt distracted by activity in rooms off of hallway, was looking for daughter. Stood and chatted briefly with her. Did not experience any shortness of breath, did not complain of fatigue or pain. No loss of balance noted. Left up in chair w/call light in reach, chair alarm activated, provided fresh water. Nrsg notified.) Physical Therapy Problem List: Detail (1) Assistance with bed mobility, transfers 2) Impaired ambulation 3) Limited bilateral knee AROM 4) Decreased bilateral LE strength) Physical Therapy Goals: 1) The patient will be independent/minimal assist with bed mobility. 2) The patient will require CG/supervision with sit to and from stand transfer. 3) The patient will ambulate household distances with appropriate assistive device with supervision for safety. Physical Therapy Plan: PT M-F one time a day for bed mobility, transfer training , gait training.
== END 2019-02-05 18:25 | DRG 194 ==
LOC: ER 19:58 → MEDSURG 22:59
PROVIDERS: ADMIT Internal Medicine; ATTEND Internal Medicine
DX: J18.9 Pneumonia, unspecified organism (principal); Z95.811 Presence of heart assist device; Y95 Nosocomial condition; R05 Cough; R53.1 Weakness; E11.9 Type 2 diabetes mellitus without complications; F03.90 Unspecified dementia, unspecified severity, without behavioral disturbance, psychotic disturbance, mood disturbance, and anxiety; N39.498 Other specified urinary incontinence; N40.0 Benign prostatic hyperplasia without lower urinary tract symptoms; Z66 Do not resuscitate; Z87.891 Personal history of nicotine dependence; Z85.841 Personal history of malignant neoplasm of brain; Z86.73 Personal history of transient ischemic attack (TIA), and cerebral infarction without residual deficits
CPT/HCPCS: 70450; 71046; 80048; 80053; 81001; 82140; 83605; 84484; 85025; 85027; 93005; 93010; 97530; 99223; 99239; 99285; J1956; J7030